=== PATIENT | female | born 1945 | race Two or more races ===

== ENCOUNTER 2018-01-20 14:41 | Inpatient (IN) | payer MEDICARE, OTHER ==
[2018-01-20] VITALS (20 sets, daily range): BP systolic 71–117; BP diastolic 28–50
[~2018-01-20] VITALS: Ht 154.9 cm; Wt 63.0 kg
--- NOTE | 2018-01-20 14:45 | NUR ---
AAOX3, BIBRA 39 FROM DIALYSIS CENTER C/O HYPOTENSION 70/40 AFTER THE PATIENT FINISHED HER DIALYSIS. ASYMPTOMATIC. RR IS EVEN AND UNLABORED WITH NAD NOTED. PLACED ON THE MONITOR. SKIN IS WARM AND DRY. DR THAKUR AT BS FOR EVAL.
[2018-01-20] MEDS ORDERED: IV NS 0.9% 500 ML BAG IV ONE (15:00)
[2018-01-20] MEDS ORDERED: DILTIAZEM HCL 25 MG IV ONE (15:17)
[2018-01-20] MEDS ORDERED: Magnesium 1GM/D5W 100ML PREMIX 100 ML IV ONE ×2 (15:17→16:39)
[2018-01-20 15:24] LABS: CALCIUM, SERUM 7.9 mg/dL (8.5-10.1); CARBON DIOXIDE 30 mmol/L (21-32); CHLORIDE 99 mmol/L (98-107); CREATININE 1.9 mg/dL (0.6-1.3); GLUCOSE 125 mg/dL (74-106); SODIUM SERUM 133 mmol/L (136-145); UREA NITROGEN, BLOOD 18 mg/dL (7-18)
[2018-01-20 15:25] LABS: POTASSIUM 2.8 mmol/L (3.5-5.1)
[2018-01-20 15:27] LABS: HEMATOCRIT 26 % (39-51); MEAN CORPUSCULAR HEMOGLOBIN 28 PG (26.0-33.0); MEAN CORPUSCULAR HGB CONC 35 g/dl (31.0-36.0); MEAN CORPUSCULAR VOLUME 80 fL (80-96); PLATELET COUNT (AUTO) 131 /CMM (150-450); RDW COEFFICIENT OF VARIATION 15.1 (11.5-15.0); RED BLOOD CELL COUNT(AUTO) 3.18 MIL/uL (4.5-6.0); WHITE BLOOD COUNT (AUTO) 6.1 K/uL (4.3-11.0)
[2018-01-20 15:29] LABS: ALBUMIN 1.9 g/dL (3.4-5.0); ALKALINE PHOSPHATASE 124 U/L (46-116); BILIRUBIN,TOTAL 0.3 mg/dL (0.2-1.0); INR 0.98 (0.85-1.15); TOTAL PROTEIN, SERUM 5.1 g/dL (6.4-8.2)
[2018-01-20] MEDS: Magnesium 1GM/D5W 100ML PREMIX 100 ML IV SCH ×2 (15:30→16:30)
[2018-01-20] MEDS ORDERED: DILTIAZEM HCL IV 125 MG in IV NS 0.9% 100 ML IV PRN (15:30)
[2018-01-20] MEDS ORDERED: DILTIAZEM HCL 50 MG IV IV ONE (15:30)
[2018-01-20 15:31] LABS: TROPONIN I 0.096 ng/mL (0.00-0.056)
[2018-01-20] MEDS ORDERED: BUDE10.2 IH (15:40)
[2018-01-20] MEDS ORDERED: SUCR1TAB PO (15:40)
[2018-01-20] MEDS ORDERED: AMLO5TAB2 PO (15:40)
[2018-01-20] MEDS ORDERED: CALC0.5C11 PO (15:40)
[2018-01-20] MEDS ORDERED: PANT40TA2 PO (15:40)
[2018-01-20] MEDS ORDERED: CLON0.1T PO (15:40)
[2018-01-20] MEDS ORDERED: ONDA4TAB10 PO (15:40)
[2018-01-20] MEDS ORDERED: LOSA100T15 PO (15:40)
[2018-01-20] MEDS ORDERED: METO25TA3 PO (15:40)
[2018-01-20] MEDS ORDERED: METO-295 PO (15:40)
[2018-01-20] MEDS ORDERED: ERGO500014 PO (15:40)
[2018-01-20 15:45] LABS: ALANINE AMINOTRANSFERASE 63 U/L (12-78); ASPARTATE AMINOTRANSFERASE 107 U/L (15-37)
[2018-01-20] MEDS ORDERED: IV NS 0.9% 1,000 ML BAG IV ONE (16:00)
[2018-01-20] MEDS ORDERED: POTASSIUM CL. PREMIX PERIPHER. 50 ML IV SCH (16:30)
[2018-01-20] MEDS ORDERED: ASPIRIN 81 MG TAB.CHEW PO SCH (16:30)
[2018-01-20] MEDS ORDERED: POTASSIUM CL. PREMIX PERIPHER. 50 ML ONE (16:41)
[2018-01-20] MEDS ORDERED: ASPIRIN 81 MG TAB.CHEW ONE (16:44)
[2018-01-20 17:10] LABS: NEUTROPHILS % (MANUAL) 76 (42-76)
[2018-01-20 17:11] LABS: BAND % (MANUAL) 4 % (0.0-5.0); EOSINOPHILS % (MANUAL) 5 % (0-4); LYMPHOCYTES % (MANUAL) 3 % (16-48); MONOCYTES % (MANUAL) 12 % (0-11.0)
[2018-01-20] MEDS ORDERED: IV NS 0.9% 1,000 ML IV PRN (17:26)
[2018-01-20] MEDS ORDERED: ONDANSETRON HCL/PF 4 MG/2 ML VIAL IVP PRN (17:30)
[2018-01-20] MEDS ORDERED: ONDANSETRON 4 MG TAB.RAPDIS SL PRN (17:30)
[2018-01-20] MEDS ORDERED: CLONIDINE HCL 0.1 MG TABLET PO PRN (17:30)
[2018-01-20] MEDS ORDERED: Z GUARD REMEDY 2 OZ OINT TP PRN (17:30)
[2018-01-20] MEDS ORDERED: ACETAMINOPHEN 325 MG TABLET PO PRN (17:30)
--- NOTE | 2018-01-20 17:30 | NUR ---
Patient is resting comfortably in bed with eyes closed. Easily aroused. VSS
--- NOTE | 2018-01-20 18:31 | NUR ---
ICU 261
--- NOTE | 2018-01-20 18:44 | NUR ---
REPORT GIVEN TO CHANTAL WEBB FOR [facility] ICU 256
--- NOTE | 2018-01-20 19:25 | NUR ---
BALE SEWER: RECEIVED LAO SPEAKING PT FROM ER WT DX OF HYPOTENSION AND UNCONTROLLED A. FIB. ALERT AND ORIENTED X 3. ON ROOM AIR WT NO ACUTE DISTRESS. NO C/O PAIN OR EVIDENCE OF DISCOMFORT. WAS ON CARDIZEM DRIP FROM ER AND NOW OFF SBP IN THE 80s. IN AND OUT OF CONTROLLED A. FIB WT HR IN THE 90s TO 100. BODY ASSESSMENT DONE AND NOTED WT MULT. BODY DISCOLORATION. WILL ADMINISTER MEDS ORDERED. SAFETY PRECAUTION NOTED. CALL LIGHT WITHIN EASY REACH.
[2018-01-20] MEDS ORDERED: NOREPINEPHRINE 16 MG in IV D5W 500 ML IV PRN (20:00)
--- NOTE | 2018-01-20 21:00 | NUR ---
HAND TURNER: BETZAIDA ESCOBAR AT BEDSIDE AND UPDATED PT STATUS. 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 LAST RADIATION WAS YESTERDAY WHILE ADMITTED AT [facility]. WAS SUPPOSED TO HAVE CHEMOTHERAPY TODAY AFTER DIALYSIS CENTER BUT GOT ADMITTED HERE IN [facility].
[2018-01-20] MEDS ORDERED: APIXABAN 2.5 MG TABLET PO SCH (23:00)
--- NOTE | 2018-01-20 23:45 | NUR ---
BILINGUAL CASE MANAGER: DR. MCMANUS MADE AWARE OF TROPONIN RESULT WT NEW ORDERS. ALSO MADE AWARE THAT PT HAS MULT. MYELOMA AND IS CURRENTLY UNDERGOING CHEMO AND RADIATION TX.
[2018-01-21] VITALS (45 sets, daily range): BP systolic 91–138; BP diastolic 41–91
[2018-01-21] MEDS ORDERED: ENOXAPARIN SODIUM 60 MG/0.6 ML DISP.SYRIN SQ ONE
[2018-01-21 05:14] LABS: EOSINOPHILS % (AUTO) 2.8 % (0.0-6.0); HEMATOCRIT 24 % (33-45); LYMPHOCYTES # (AUTO) 0.2 /CMM (0.8-4.8); LYMPHOCYTES % (AUTO) 2.3 % (20.0-44.0); MEAN CORPUSCULAR HEMOGLOBIN 28 PG (26.0-33.0); MEAN CORPUSCULAR HGB CONC 33 g/dl (31.0-36.0); MEAN CORPUSCULAR VOLUME 83 fL (82-100); MONOCYTES # (AUTO) 0.3 /CMM (0.1-1.30); MONOCYTES % (AUTO) 4.5 % (2.0-12.0); NEUTROPHILS # (AUTO) 6.8 /CMM (1.8-8.9); NEUTROPHILS % (AUTO) 90.4 % (43.0-81.0); PLATELET COUNT (AUTO) 140 /CMM (150-450); RDW COEFFICIENT OF VARIATION 16.5 (11.5-15.0); WHITE BLOOD COUNT (AUTO) 7.5 K/uL (4.3-11.0)
--- NOTE | 2018-01-21 05:15 | NUR ---
DATA WAREHOUSE CONSULTANT: REMAINED ALERT AND ABLE TO MAKE NEEDS KNOWN. STILL ON LEVOPHED AT 2MCG/MIN FOR BP SUPPORT. STILL ANURIC THROUGHOUT THE SHIFT. NO ACUTE DISTRESS, NO C/O PAIN. WILL CONTINUE TO MONITOR.
[2018-01-21 05:27] LABS: ALANINE AMINOTRANSFERASE 43 U/L (12-78); ALBUMIN 1.7 g/dL (3.4-5.0); ALKALINE PHOSPHATASE 97 U/L (46-116); ASPARTATE AMINOTRANSFERASE 89 U/L (15-37); BILIRUBIN,TOTAL 0.2 mg/dL (0.2-1.0); CALCIUM, SERUM 7.8 mg/dL (8.5-10.1); CARBON DIOXIDE 26 mmol/L (21-32); CHLORIDE 100 mmol/L (98-107); CREATININE 2.7 mg/dL (0.6-1.3); GLUCOSE 95 mg/dL (74-106); PHOSPHORUS 2.8 mg/dL (2.5-4.9); POTASSIUM 2.9 mmol/L (3.5-5.1); SODIUM SERUM 135 mmol/L (136-145); TOTAL PROTEIN, SERUM 4.6 g/dL (6.4-8.2); UREA NITROGEN, BLOOD 24 mg/dL (7-18)
[2018-01-21 05:34] LABS: CHOLESTEROL 183 mg/dL (<200); HDL CHOLESTEROL 14 mg/dL (40-60); LDL 54 mg/dL (0-99); THYROID STIMULATING HORMONE 0.741 uIU/mL (0.358-3.74); TRIGLYCERIDES 551 mg/dL (30-150)
--- NOTE | 2018-01-21 05:45 | NUR ---
FEEDER CATCHER: CALLED AND NOTIFIED DR. QUEEN OF K=2.9 FROM 2.8 AND PT REMAINED ANURIC AND WAS GIVEN KCL 10MEQ FROM ER. ALSO INFORMED THAT TOMEKA REGALADO ORDERED NS AT 75ML/HR FOR 500ML TOTAL VOLUME. SAID NO NEED TO REPLACE K IF THERE IS NO URINE OUTPUT. ALSO ORDERED NS AT 100ML/HR FOR RENAL FAILURE WT NO STOP DATE OR VOLUME TO BE INFUSED. WAS MADE AWARE AGAIN THAT PT IS ON HEMODIALYSIS. NOTED AND CARRIED OUT.
[2018-01-21] MEDS ORDERED: IV NS 0.9% 1,000 ML IV PRN (05:50)
--- NOTE | 2018-01-21 06:30 | NUR ---
GUT DROPPER: REMAINED SR ON SUBPOENA SERVER MOSTLY THROUGHOUT THE SHIFT SINCE 2099. NO SIGNIFICANT MACK.
--- NOTE | 2018-01-21 07:30 | NUR ---
ICU/RN: Pt received in bed, comfortable, eyes closed, breathing even and unlabored, A&Ox4, Belarusian speaking only. MARCO AV shunt present, + bruit, thrill. R CW HD cath c clean and dry dressing. IVF infusing well. All needs met and attended to. Will cont to monitor pt.
[2018-01-21] MEDS: SUCRALFATE 1 G TABLET PO SCH ×2 (08:14→16:26)
[2018-01-21] MEDS: METOCLOPRAMIDE HCL 10 MG TABLET PO SCH ×3 (08:14→16:26)
[2018-01-21] MEDS: PANTOPRAZOLE 40 MG TABLET.DR PO SCH (08:14)
[2018-01-21] MEDS: FLUTICASONE/VILANTEROL 1 EACH BLST.W.DEV IH SCH (08:16)
[2018-01-21] MEDS ORDERED: AMLODIPINE BESYLATE 5 MG TABLET PO SCH (09:00)
[2018-01-21] MEDS ORDERED: LOSARTAN POTASSIUM 50 MG TABLET PO SCH (09:00)
[2018-01-21] MEDS ORDERED: METOPROLOL SUCCINATE 25 MG TAB.SR.24H PO SCH (09:00)
--- NOTE | 2018-01-21 09:15 | NUR ---
ICU/RN: Dr Laguna in for nephrology consult; updated on pt status, scant urine output. Per mitesh LIANG to give K+ replacements, DC IVF. Noted and carried out.
[2018-01-21] MEDS: POTASSIUM CHLORIDE 20 MEQ TAB.PRT.SR PO SCH ×3 (09:19→11:24)
[2018-01-21] MEDS ORDERED: APIXABAN 2.5 MG TABLET PO ONE (10:00)
[2018-01-21] MEDS: CALCITRIOL 0.25 MCG CAPSULE PO SCH ×2 (15:06→16:26)
--- NOTE | 2018-01-21 15:25 | NUR ---
ICU/RN: Bed bath rendered, small smear of stool noted, insufficient amount to collect for OBS. Will cont to monitor pt.
--- NOTE | 2018-01-21 18:45 | NUR ---
ICU/RN: Silver Benson at bedside, updated on pt status. Had lengthy dw niece regarding POC. Informed pt is off pressors, BP and rate control meds still on hold. Awaiting further orders.
--- NOTE | 2018-01-21 21:29 | NUR ---
ICU/INTERIOR DESIGN PROFESSIONAL NIECE OF PT CAME IN DUE TO PT BEING UPSET AND UNABLE TO PROVIDE DISHWASHER PREPARER FOR THIS PT. ONCE HERE THE NIECE WAS ABLE TO SUGGEST A SLEEPING AID. PT AT HOME GETS SLEEPER, OF AMBIEN. CALLED DR MCMANUS, AND GOT ORDER FOR X1 AMBIEN 5MG PO. WILL GIVE THIS @ 22OO AND MONITOR THIS PT, WILL CALL LIGHT WITHIN REACH AND BED ALARMS SET.
[2018-01-21 21:33] LABS: OCCULT BLOOD STOOL NEGATIVE (NEGATIVE)
[2018-01-21] MEDS ORDERED: ZOLPIDEM TARTRATE 5 MG TABLET PO ONE (22:00)
--- NOTE | 2018-01-21 22:10 | NUR ---
ICU/FORGE HAND PT GIVEN AMBIEN 5MG PO FOR SLEEPING, PT TAKES THIS AT HOME. NO ACUTE DISTRESS SEEN AT THIS TIME, PT APPEARS COMFORTABLE. CALL LIGHT WITHIN REACH. WILL CONTINUE TO MONITOR THIS PT, BED ALARM SET.
--- NOTE | 2018-01-21 23:20 | NUR ---
ICU/ANESTHESIOLOGY FACULTY PT ASST TO BEDSIDE COMMODE, PT HAD STABLE GATE WITH STAND-BYE AST. PT WAS ABLE TO HAVE A LARGE, SOFT, BM. PT WAS CLEANED UP AND ASST BACK TO BED. CALL LIGHT WITHIN REACH, NO SOB SEEN.
[2018-01-22] VITALS (13 sets, daily range): BP systolic 90–122; BP diastolic 37–57
--- NOTE | 2018-01-22 01:45 | NUR ---
ICU/ENVELOPE SEALER PT WAS GIVEN AM CARE, TOLERATE THIS WELL. PT DENIED PAIN AT THIS TIME AND DENIED SOB. CALL LIGHT WITHIN REACH. PT WAS TURNED, REPOSITIONED FOR COMFORT AND CARE. WILL CONTINUE TO MONITOR THIS PT.
[2018-01-22 05:20] LABS: EOSINOPHILS % (AUTO) 1.7 % (0.0-6.0); HEMATOCRIT 22 % (33-45); HEMOGLOBIN 7.3 g/dL (11.5-14.8); LYMPHOCYTES # (AUTO) 0.2 /CMM (0.8-4.8); LYMPHOCYTES % (AUTO) 3.7 % (20.0-44.0); MEAN CORPUSCULAR HEMOGLOBIN 27 PG (26.0-33.0); MEAN CORPUSCULAR HGB CONC 33 g/dl (31.0-36.0); MEAN CORPUSCULAR VOLUME 81 fL (82-100); MONOCYTES # (AUTO) 0.2 /CMM (0.1-1.30); MONOCYTES % (AUTO) 2.7 % (2.0-12.0); NEUTROPHILS # (AUTO) 5.4 /CMM (1.8-8.9); NEUTROPHILS % (AUTO) 91.9 % (43.0-81.0); PLATELET COUNT (AUTO) 124 /CMM (150-450); RDW COEFFICIENT OF VARIATION 16.2 (11.5-15.0); RED BLOOD CELL COUNT(AUTO) 2.74 MIL/uL (4.0-5.2); WHITE BLOOD COUNT (AUTO) 5.9 K/uL (4.3-11.0)
[2018-01-22 05:58] LABS: TROPONIN I 0.545 ng/mL (0.00-0.056)
--- NOTE | 2018-01-22 07:30 | NUR ---
CARROT HARVESTER NOTE: RECEIVED PATIENT IN BED, SEATED IN AN UPRIGHT POSITION. PATIENT WAS CAPE VERDEAN SPEAKING AND AN CAPE VERDEAN SPEAKING NURSE WAS AVAILABLE TO INTERPRET. ON BENCH CARPENTER, ST HR= 115. RESPIRATION IS EVEN AND UNLABORED SATURATING 95% IN ROOM AIR. PATIENT REQUESTED FOR HER BREAKFAST TRAY, PATIENT WAS NEEDY AND WANTING TO GET HER NEEDS ATTENDED RIGHT AWAY. REMOVED HER BP CUFF. BREAKFAST TRAY WAS GIVEN. PLACED HER FULL DENTURE ON HER IN ORDER TO EAT HER BREAKFAST. CALL LIGHT WITHIN REACH. NEEDS ANTICIPATED.
[2018-01-22] MEDS: PANTOPRAZOLE 40 MG TABLET.DR PO SCH (08:12)
[2018-01-22 08:19] LABS: IRON, SERUM 34 ug/dl (50-175); TOTAL IRON BINDING CAPACITY 130 ug/dl (250-450)
[2018-01-22] MEDS: SUCRALFATE 1 G TABLET PO SCH ×2 (08:31→17:44)
[2018-01-22] MEDS: FLUTICASONE/VILANTEROL 1 EACH BLST.W.DEV IH SCH (08:31)
[2018-01-22] MEDS: METOCLOPRAMIDE HCL 10 MG TABLET PO SCH ×3 (08:32→17:44)
[2018-01-22] MEDS: CALCITRIOL 0.25 MCG CAPSULE PO SCH ×2 (08:32→17:44)
[2018-01-22] MEDS: APIXABAN 2.5 MG TABLET PO SCH ×2 (08:32→17:44)
[2018-01-22] MEDS: METOPROLOL TARTRATE 50 MG TABLET PO SCH ×2 (09:00→20:06)
--- NOTE | 2018-01-22 09:29 | NUR ---
SPOUTING INSTALLER NOTE: DR. Comfort DAWN PRESENT IN THE UNIT AND PER MD, PATIENT WILL BE DIALYZE TODAY. BP MEDICATION WAS HELD. BP= 120/55 HR= 112. PATIENT DENIED PAIN AT THIS TIME. ALL AM MEDICATIONS ADMINISTERED.
[2018-01-22] MEDS ORDERED: EPOETIN ALFA (10,000 UNIT) 10,000 UNIT/ML VIAL IV ONE (10:00)
[2018-01-22 10:17] LABS: ALANINE AMINOTRANSFERASE 37 U/L (12-78); ALBUMIN 1.7 g/dL (3.4-5.0); ALKALINE PHOSPHATASE 89 U/L (46-116); ASPARTATE AMINOTRANSFERASE 58 U/L (15-37); BILIRUBIN,TOTAL 0.2 mg/dL (0.2-1.0); CARBON DIOXIDE 20 mmol/L (21-32); CHLORIDE 96 mmol/L (98-107); CREATININE 3.8 mg/dL (0.6-1.3); GLUCOSE 79 mg/dL (74-106); MAGNESIUM 1.7 mg/dL (1.8-2.4); PHOSPHORUS 2.8 mg/dL (2.5-4.9); POTASSIUM 4.1 mmol/L (3.5-5.1); SODIUM SERUM 129 mmol/L (136-145); TOTAL PROTEIN, SERUM 4.6 g/dL (6.4-8.2); UREA NITROGEN, BLOOD 37 mg/dL (7-18)
[2018-01-22 12:53] LABS: FERRITIN 5239 ng/mL (8-388)
--- NOTE | 2018-01-22 16:00 | NUR ---
FIRE WARDEN NOTE: PATIENT CURRENTLY ON HEMODIALYSIS AT THIS TIME AND NOTED VERY ANXIOUS AND VERBALIZED THAT SHE WAS FEELING COLD. ORAL TEMP WAS 98.7, BS=86, BP= 113/56, HR= 120. CALLED THE PATIENT'S NIECE, LUZ AND PER LUZ, SHE WILL COME AND VISIT HER AUNT TODAY. PATIENT CALMED DOWN AND TOLERATED THE HEMODIALYSIS.
--- NOTE | 2018-01-22 17:20 | NUR ---
PREPARER NOTE: DR. LANDAVERDE WAS MADE AWARE OF THE PATIENT'S EKG RESULT. WITH NO NEW ORDER AT THIS TIME.
--- NOTE | 2018-01-22 19:45 | NUR ---
TAX COMMISSIONER NOTE: PATIENT REMAINED CALM AND QUIET IN BED WITH HER FAMILY PRESENT AT THE BEDSIDE. REPORT GIVEN TO PM SHIFT NURSE FOR CONTINUITY OF CARE.
--- NOTE | 2018-01-22 20:26 | NUR ---
SOCIAL MEDIA ANALYST LUZ AT BEDSIDE, PT REQUESTING AMBIEN 5MG TONIGHT FOR INSOMNIA, SPOKE TO MD DAVIS MD WITH NEW ORDER OF AMBIEN 5MG PO QHS PRN. FAMILY AND PATIENT AWARE.
[2018-01-22] MEDS ORDERED: ZOLPIDEM TARTRATE 5 MG TABLET PO PRN (20:30)
[2018-01-23] VITALS (7 sets, daily range): BP systolic 97–114; BP diastolic 45–69
[2018-01-23 06:32] LABS: BASOPHILS % (AUTO) 0.2 % (0.0-2.0); HEMATOCRIT 21 % (33-45); LYMPHOCYTES # (AUTO) 0.2 /CMM (0.8-4.8); LYMPHOCYTES % (AUTO) 5.6 % (20.0-44.0); MEAN CORPUSCULAR HEMOGLOBIN 27 PG (26.0-33.0); MEAN CORPUSCULAR HGB CONC 33 g/dl (31.0-36.0); MEAN CORPUSCULAR VOLUME 81 fL (82-100); MONOCYTES # (AUTO) 0.2 /CMM (0.1-1.30); MONOCYTES % (AUTO) 3.7 % (2.0-12.0); NEUTROPHILS # (AUTO) 3.8 /CMM (1.8-8.9); NEUTROPHILS % (AUTO) 88.5 % (43.0-81.0); PLATELET COUNT (AUTO) 118 /CMM (150-450); RDW COEFFICIENT OF VARIATION 16.9 (11.5-15.0); RED BLOOD CELL COUNT(AUTO) 2.55 MIL/uL (4.0-5.2); WHITE BLOOD COUNT (AUTO) 4.3 K/uL (4.3-11.0)
[2018-01-23 06:46] LABS: CALCIUM, SERUM 7.9 mg/dL (8.5-10.1); CARBON DIOXIDE 27 mmol/L (21-32); CHLORIDE 100 mmol/L (98-107); CREATININE 2.9 mg/dL (0.6-1.3); GLUCOSE 81 mg/dL (74-106); MAGNESIUM 1.6 mg/dL (1.8-2.4); PHOSPHORUS 2.4 mg/dL (2.5-4.9); POTASSIUM 3.6 mmol/L (3.5-5.1); SODIUM SERUM 134 mmol/L (136-145); UREA NITROGEN, BLOOD 24 mg/dL (7-18)
[2018-01-23 07:01] LABS: HEMOGLOBIN 6.7 g/dL (11.5-14.8)
--- NOTE | 2018-01-23 07:42 | NUR ---
GUEST RELATIONS EXECUTIVE OPENING NOTE RECEIVED BEDSIDE SBAR REPORT ON THE PATIENT. PATIENT IS A/O X4, SERBIAN SPEAKING. AWAKE AND RESPONSIVE IN BED. BED IS LOCKED IN LOWEST POSITION, SIDE RAILS UP X3,BED ALARM IS ON. CALL LIGHT WITHIN REACH. EDUCATED THE PATIENT TO CALL FOR ASSISTANCE USING THE CALL LIGHT. PATIENT VERBALIZED UNDERSTANDING. PATIENT IS AMBULATORILY WITH ASSIST. CONTINENT, USES BEDPAN. DENIES PAIN/DISCOMFORT AT THIS TIME. EXTERNAL MONITOR READING SR 86BPM. ALL NEEDS ARE MET. WILL CONTINUE TO ASSESS/MONITOR THROUGHOUT THE SHIFT.
[2018-01-23] MEDS: SUCRALFATE 1 G TABLET PO SCH ×2 (08:48→17:55)
[2018-01-23] MEDS: CALCITRIOL 0.25 MCG CAPSULE PO SCH ×2 (08:48→17:55)
[2018-01-23] MEDS: METOCLOPRAMIDE HCL 10 MG TABLET PO SCH ×3 (08:48→17:55)
[2018-01-23] MEDS: PANTOPRAZOLE 40 MG TABLET.DR PO SCH (08:49)
[2018-01-23] MEDS: METOPROLOL TARTRATE 50 MG TABLET PO SCH ×2 (08:51→20:59)
[2018-01-23] MEDS: APIXABAN 2.5 MG TABLET PO SCH ×2 (08:52→17:55)
[2018-01-23] MEDS: FLUTICASONE/VILANTEROL 1 EACH BLST.W.DEV IH SCH (08:54)
[2018-01-23 11:26] LABS: LYMPHOCYTES % (MANUAL) 8 % (16-48); MONOCYTES % (MANUAL) 4 % (0-11.0); NEUTROPHILS % (MANUAL) 88 (42-76)
--- NOTE | 2018-01-23 16:26 | NUR ---
SPOKE TO THE BLOOD BANK. PER AURELIA, THE BLOOD SAMPLE JUST KENY PICKET UP BY RED CROSS. BLOOD IS STILL PENDING.
--- NOTE | 2018-01-23 19:06 | NUR ---
PRIVATE TUTORS AND TEACHERS CLOSING NOTE GAVE BEDSIDE SBAR REPORT ON THE PATIENT. PATIENT IS A/O X4, DJIBOUTIAN SPEAKING. AWAKE AND RESPONSIVE IN BED. BED IS LOCKED IN LOWEST POSITION, SIDE RAILS UP X3,BED ALARM IS ON. CALL LIGHT WITHIN REACH. EDUCATED THE PATIENT TO CALL FOR ASSISTANCE USING THE CALL LIGHT. PATIENT VERBALIZED UNDERSTANDING. PATIENT IS AMBULATORILY WITH ASSIST. CONTINENT, USES BEDPAN. DENIES PAIN/DISCOMFORT AT THIS TIME. ALL NEEDS ARE MET. ENDORSED TO THE POP SINGER NURSE FOR MACK
[2018-01-24] VITALS (10 sets, daily range): BP systolic 105–147; BP diastolic 47–78
--- NOTE | 2018-01-24 08:10 | NUR ---
here. He talked to family on the phone. Addendum: 01/24/18 at 1020 by REBECCA GOODSON RN 0800: Blood transfusion done. Patient is alert and oriented no sign of distress
[2018-01-24] MEDS: PANTOPRAZOLE 40 MG TABLET.DR PO SCH (08:26)
[2018-01-24] MEDS: SUCRALFATE 1 G TABLET PO SCH ×2 (09:05→16:12)
[2018-01-24] MEDS: METOCLOPRAMIDE HCL 10 MG TABLET PO SCH ×3 (09:05→16:11)
[2018-01-24] MEDS: CALCITRIOL 0.25 MCG CAPSULE PO SCH ×2 (09:06→16:13)
[2018-01-24] MEDS: APIXABAN 2.5 MG TABLET PO SCH ×2 (09:06→16:13)
[2018-01-24] MEDS: METOPROLOL TARTRATE 50 MG TABLET PO SCH ×2 (09:53→21:55)
[2018-01-24] MEDS: FLUTICASONE/VILANTEROL 1 EACH BLST.W.DEV IH SCH (09:53)
[2018-01-24 10:26] LABS: BASOPHILS % (AUTO) 0.1 % (0.0-2.0); EOSINOPHILS % (AUTO) 1.7 % (0.0-6.0); HEMATOCRIT 25 % (33-45); LYMPHOCYTES # (AUTO) 0.4 /CMM (0.8-4.8); LYMPHOCYTES % (AUTO) 7.1 % (20.0-44.0); MEAN CORPUSCULAR HEMOGLOBIN 27 PG (26.0-33.0); MEAN CORPUSCULAR HGB CONC 33 g/dl (31.0-36.0); MEAN CORPUSCULAR VOLUME 83 fL (82-100); MONOCYTES # (AUTO) 0.1 /CMM (0.1-1.30); MONOCYTES % (AUTO) 2.3 % (2.0-12.0); NEUTROPHILS # (AUTO) 4.8 /CMM (1.8-8.9); NEUTROPHILS % (AUTO) 88.8 % (43.0-81.0); PLATELET COUNT (AUTO) 121 /CMM (150-450); RDW COEFFICIENT OF VARIATION 16.5 (11.5-15.0); RED BLOOD CELL COUNT(AUTO) 2.97 MIL/uL (4.0-5.2); WHITE BLOOD COUNT (AUTO) 5.4 K/uL (4.3-11.0)
[2018-01-24 11:40] LABS: CALCIUM, SERUM 7.8 mg/dL (8.5-10.1); CARBON DIOXIDE 22 mmol/L (21-32); CHLORIDE 97 mmol/L (98-107); CREATININE 3.9 mg/dL (0.6-1.3); GLUCOSE 154 mg/dL (74-106); MAGNESIUM 1.6 mg/dL (1.8-2.4); PHOSPHORUS 3.2 mg/dL (2.5-4.9); POTASSIUM 4.1 mmol/L (3.5-5.1); SODIUM SERUM 131 mmol/L (136-145); UREA NITROGEN, BLOOD 39 mg/dL (7-18)
--- NOTE | 2018-01-24 13:17 | NUR ---
DIALYSIS 1337: Dialysis done, lasted 2 hours and took out 1 liter.
--- NOTE | 2018-01-24 18:39 | NUR ---
MD NOTIFICATION 1809: Called Dr Quintero to notify him: Patient had olivier blood stool, large. paged. 1830: Dr Quintero called back with new order to hold discharge.
--- NOTE | 2018-01-24 19:30 | NUR ---
RN OPENING NOTES PT AWAKE AND RESTING IN BED. PT ENGLISH SPEAKING ONLY. NO APPARENT S/S OF PAIN, DISTRESS OR SOB. HAS A RIGHT FA #20 IV, RIGHT WRIST #22, R SUBCLAVIAN HD CATHETER, AND LEFT UPPER ARM AV FISTULA, ALL INTACT. PT HAD HD TODAY OUTPUT 1L. PER DAY SHIFT NURSE PT HAD BLOOD IN STOOL. WILL CONTINUE TO MONITOR BM. SAFETY PRECAUTIONS IN PLACE, BED IN LOWEST LOCKED POSITION, X2 SIDE RAILS UP, CALL LIGHT WITHIN REACH. WILL CONTINUE TO MONITOR.
--- NOTE | 2018-01-24 19:56 | NUR ---
End of shift note Patient is alert, Tamazight speaking only. On room air with no respiratory distress. Generalized edema. Continent of bowl and bladder. Had large bloody stool. MD notified. HD patient with acces right christian cath. Had dialysis today with 1 liter taken out. Ambulatory with assist. Skin pale and intact. IV site right arm, saline locked. Report given to tereza Preston RN
--- NOTE | 2018-01-25 06:54 | NUR ---
RN CLOSING NOTES PT AWAKE AND RESTING IN BED. PT PORTUGUESE SPEAKING ONLY. NO APPARENT S/S OF PAIN, DISTRESS OR SOB. HAS A RIGHT FA #20 IV, RIGHT WRIST #22, R SUBCLAVIAN HD CATHETER, AND LEFT UPPER ARM AV FISTULA, ALL INTACT. PT HAD HD TODAY OUTPUT 1L. SAFETY PRECAUTIONS IN PLACE, BED IN LOWEST LOCKED POSITION, X2 SIDE RAILS UP, CALL LIGHT WITHIN REACH. WILL CONTINUE TO MONITOR.
[2018-01-25 07:10] LABS: BASOPHILS % (AUTO) 0.6 % (0.0-2.0); EOSINOPHILS % (AUTO) 1.4 % (0.0-6.0); HEMATOCRIT 24 % (33-45); LYMPHOCYTES # (AUTO) 0.4 /CMM (0.8-4.8); LYMPHOCYTES % (AUTO) 8.2 % (20.0-44.0); MEAN CORPUSCULAR HEMOGLOBIN 27 PG (26.0-33.0); MEAN CORPUSCULAR HGB CONC 33 g/dl (31.0-36.0); MEAN CORPUSCULAR VOLUME 83 fL (82-100); MONOCYTES # (AUTO) 0.3 /CMM (0.1-1.30); MONOCYTES % (AUTO) 5.1 % (2.0-12.0); NEUTROPHILS # (AUTO) 4.2 /CMM (1.8-8.9); NEUTROPHILS % (AUTO) 84.7 % (43.0-81.0); PLATELET COUNT (AUTO) 95 /CMM (150-450); RDW COEFFICIENT OF VARIATION 16.7 (11.5-15.0); RED BLOOD CELL COUNT(AUTO) 2.91 MIL/uL (4.0-5.2); WHITE BLOOD COUNT (AUTO) 4.9 K/uL (4.3-11.0)
--- NOTE | 2018-01-25 07:10 | NUR ---
MS RN NOTES PATIENT IN BED ALERT ORIENTED X 4. NO ACUTE DISTRESS NOTED. BREATHING UNLABORED. NO SOB NOTED. IV ACCESS PATENT AND INTACT, NO REDNESS NO SWELLING NOTED. CALL LIGHT WITHIN REACH. SAFETY MEASURES IN PLACE. BED LOCKED, LOW POSITION. WILL CONTINUE TO MONITOR ACCORDINGLY.
[2018-01-25] MEDS ORDERED: ERGOCALCIFEROL (VITAMIN D 2) 50,000 UNIT CAPSULE PO SCH (07:30)
[2018-01-25 08:00] VITALS: BP 108/57
[2018-01-25] MEDS: SUCRALFATE 1 G TABLET PO SCH ×2 (08:25→16:56)
[2018-01-25] MEDS: PANTOPRAZOLE 40 MG TABLET.DR PO SCH (08:25)
[2018-01-25] MEDS: CALCITRIOL 0.25 MCG CAPSULE PO SCH ×2 (08:25→16:56)
[2018-01-25] MEDS: APIXABAN 2.5 MG TABLET PO SCH ×2 (08:26→17:00)
[2018-01-25] MEDS: METOPROLOL TARTRATE 50 MG TABLET PO SCH ×2 (08:26→21:00)
[2018-01-25] MEDS: METOCLOPRAMIDE HCL 10 MG TABLET PO SCH ×3 (08:26→16:56)
[2018-01-25 08:59] LABS: EOSINOPHILS % (MANUAL) 2 % (0-4); LYMPHOCYTES % (MANUAL) 9 % (16-48); MONOCYTES % (MANUAL) 9 % (0-11.0); NEUTROPHILS % (MANUAL) 80 (42-76)
[2018-01-25] MEDS: FLUTICASONE/VILANTEROL 1 EACH BLST.W.DEV IH SCH (09:24)
[2018-01-25 10:00] VITALS: BP 108/57
--- NOTE | 2018-01-25 14:25 | NUR ---
MS RN NOTES [facility] TO DISCONTINUE RIGHT ARM SLING AND ORDER RIGHT UPPER EXTREMITIES WEIGHT BEARING TOLERATED, NOTED AND CARRIED OUT.
[2018-01-25 16:00] VITALS: BP 116/58
--- NOTE | 2018-01-25 17:00 | NUR ---
MS RN NOTES HELD ELIQUIS PATIENT WILL HAVE PROCEDURE TOMORROW.
--- NOTE | 2018-01-25 18:35 | NUR ---
MS RN NOTES PATIENT IN BED ALERT ORIENTED X 4. NO ACUTE DISTRESS NOTED. BREATHING UNLABORED. NO SOB NOTED. IV ACCESS PATENT AND INTACT, NO REDNESS NO SWELLING NOTED. DUE MEDICATIONS GIVEN, NO ASE NOTED. NEEDS ATTENDED AND ANTICIPATED. KEPT CLEAN, DRY AND COMFORTABLE. CALL LIGHT WITHIN REACH. SAFETY MEASURES IN PLACE. BED LOCKED, LOW POSITION. WILL CONTINUE TO MONITOR ACCORDINGLY. WILL ENDORSE TO NIGHT NURSE FOR CONTINUITY OF CARE.
--- NOTE | 2018-01-25 19:45 | NUR ---
MS RN NOTE PT RECEIVED AWAKE AND SITTING UP IN BED WITH NIECE AT BEDSIDE. NO C/O PAIN OR DISCOMFORT NOTED. EXPLAINED TO REMAIN NPO AFTER MIDNIGHT FOR PROCEDURE TOMORROW. PT VERBALIZED UNDERSTANDING. HOB ELEVATED. CALL LIGHT WITHIN REACH. WILL CONTINUE TO MONITOR.
[2018-01-25 20:00] VITALS: BP 102/51
[2018-01-26 06:41] VITALS: BP 127/63
--- NOTE | 2018-01-26 06:42 | NUR ---
MS RN NOTE REMAINED STABLE DURING SHIFT. REMAINED NPO SINCE MIDNIGHT. ALL NEEDS ATTENDED TO PROMPTLY. CALL LIGHT WITHIN REACH. WILL ENDORSE TO NEXT SHIFT FOR CONTINUITY OF CARE.
[2018-01-26 07:24] LABS: BASOPHILS % (AUTO) 0.6 % (0.0-2.0); EOSINOPHILS % (AUTO) 1.5 % (0.0-6.0); HEMATOCRIT 23 % (33-45); HEMOGLOBIN 7.5 g/dL (11.5-14.8); LYMPHOCYTES # (AUTO) 0.4 /CMM (0.8-4.8); MEAN CORPUSCULAR HEMOGLOBIN 27 PG (26.0-33.0); MEAN CORPUSCULAR HGB CONC 33 g/dl (31.0-36.0); MEAN CORPUSCULAR VOLUME 82 fL (82-100); MONOCYTES # (AUTO) 0.1 /CMM (0.1-1.30); MONOCYTES % (AUTO) 2.1 % (2.0-12.0); NEUTROPHILS % (AUTO) 87.8 % (43.0-81.0); PLATELET COUNT (AUTO) 90 /CMM (150-450); RDW COEFFICIENT OF VARIATION 16.3 (11.5-15.0); RED BLOOD CELL COUNT(AUTO) 2.74 MIL/uL (4.0-5.2); WHITE BLOOD COUNT (AUTO) 4.6 K/uL (4.3-11.0)
[2018-01-26 07:29] LABS: CALCIUM, SERUM 8.8 mg/dL (8.5-10.1); CARBON DIOXIDE 25 mmol/L (21-32); CHLORIDE 100 mmol/L (98-107); CREATININE 4.4 mg/dL (0.6-1.3); GLUCOSE 81 mg/dL (74-106); POTASSIUM 4.2 mmol/L (3.5-5.1); SODIUM SERUM 133 mmol/L (136-145); UREA NITROGEN, BLOOD 46 mg/dL (7-18)
[2018-01-26] MEDS: PANTOPRAZOLE 40 MG TABLET.DR PO SCH (07:30)
--- NOTE | 2018-01-26 08:00 | NUR ---
MS RN OPENING NOTES RECEIVED PT FROM NIGHTSHIFT NURSE IN STABLE CONDITION. PT IS A/O X3. NO SOB OR SIGNS OF DISTRESS NOTED. BREATHING IS EVEN AND UNLABORED. PT ON RA AND SATING WELL. SHE DENIES ANY PAIN AT THIS TIME. NPO STATUS MAINTAINED SINCE MIDNIGHT PT IS SCHEDULED FOR EGD TODAY AROUND 1330. CONSENTS OBTAINED BY NIGHTSHIFT NURSE. WILL COMPLETE SURGICAL CHECKLIST. BED IN LOW LOCKED POSITION, SIDE RAILS UP X2, CALL LIGHT WITHIN REACH. WILL CONTINUE TO MONITOR
[2018-01-26 08:24] LABS: BAND % (MANUAL) 1 % (0.0-5.0); LYMPHOCYTES % (MANUAL) 5 % (16-48); MONOCYTES % (MANUAL) 5 % (0-11.0); NEUTROPHILS % (MANUAL) 89 (42-76)
[2018-01-26] MEDS: FLUTICASONE/VILANTEROL 1 EACH BLST.W.DEV IH SCH (08:43)
[2018-01-26] MEDS: APIXABAN 2.5 MG TABLET PO SCH ×2 (08:44→16:02)
[2018-01-26] MEDS: METOCLOPRAMIDE HCL 10 MG TABLET PO SCH ×3 (08:44→16:02)
[2018-01-26] MEDS: SUCRALFATE 1 G TABLET PO SCH ×2 (08:44→16:02)
[2018-01-26] MEDS: METOPROLOL TARTRATE 50 MG TABLET PO SCH ×2 (08:44→20:52)
[2018-01-26] MEDS: CALCITRIOL 0.25 MCG CAPSULE PO SCH ×2 (08:45→16:02)
[2018-01-26 09:59] LABS: MAGNESIUM 1.5 mg/dL (1.8-2.4); PHOSPHORUS 3.6 mg/dL (2.5-4.9)
[2018-01-26 10:00] VITALS: BP 121/61
--- NOTE | 2018-01-26 11:28 | NUR ---
MS RN NOTES: MAGNESIUM REPLACEMENT ORDER DR SANDHU MADE AWARE THAT PT'S MG IS 1.5. PER MD "REPLACE WITH 2G OF MG". WILL CARRY OUT ORDER
[2018-01-26] MEDS ORDERED: Magnesium 1GM/D5W 100ML PREMIX PIGGYBACK IV ONE (11:30)
[2018-01-26] MEDS: Magnesium 1GM/D5W 100ML PREMIX 100 ML IV SCH ×2 (11:43→13:01)
[2018-01-26] MEDS ORDERED: ETOMIDATE 2 MG/ML VIAL ONE (11:53)
--- NOTE | 2018-01-26 12:00 | NUR ---
MS RN NOTES: EGD PROCEDURE PT TAKEN WO EGD PROCEDURE IN STABLE CONDITION. MD MADE AWARE BY OR NURSE THAT PT'S MG IS NOT FULLY REPLACED
--- NOTE | 2018-01-26 12:46 | NUR ---
MS RN NOTES: POST OP PT RETURNED FROM EGD PROCEDURE IN STABLE CONDITION. ORDERS NOTED BY DR. DELGADILLO AND FAXED TO PHARMACY. DIET RESUMED. VITALS SABLE. WILL CONTINUE TO MONITOR
[2018-01-26 16:00] VITALS: BP 125/57
--- NOTE | 2018-01-26 18:45 | NUR ---
MS RN CLOSING NOTES PT REMAINS STABLE. ALL NEEDS MET DURING SHIFT AND ORDERS CARRIED OUT ACCORDINGLY. ALL DUE MEDS GIVEN. IV REMAINS PATENT AND INTACT. MAGNESIUM REPLACED DURING SHIFT. UNABLE TO OBTAIN ORTHOSTATIC BPS PT WAS REFUSING THROUGHOUT SHIFT. HOWEVER SUPINE BPS HAVE REMAINED STABLE. SHE DENIES ANY DIZZINESS AT THIS TIME. SAFETY MEASURES REMAIN IN PLACE. WILL ENDORSE TO NIGHTSHIFT NURSE FOR MACK
[2018-01-26 20:00] VITALS: BP 117/62
[2018-01-27 04:00] VITALS: BP 118/58
--- NOTE | 2018-01-27 06:49 | NUR ---
RN CLOSING NOTES Patient refused blood draw. explained risks and benefits to no avail, patient strongly refused. patient overnight observed to be anxious and irritable, patient kept calling nurses for little things, Citizen Of [place] speaking staff utilized to translate and anticipate patient's needs. safety and comfort ensured, environmental changes made per patient's comfort, however patient unable to be comfortable even with repositioning and attending of needs made with Citizen Of [place] manager of development at bedside. Constant reorientation and redirection provided to the patient. needs anticipated and met. turned and repositioned. call light in reach at all times. will endorse accordingly.
--- NOTE | 2018-01-27 07:39 | NUR ---
MS RN OPENING NOTES RECEIVED PATIENT IN STABLE CONDITION. IN NO APPARENT DISTRESS. BEDSIDE RAILS ARE UPX2. BED IS LOCKED AND LOWERED. CALL LIGHT IS WITHIN REACH. IV LINE IS INTACT AND PATENT. WILL CONTINUE TO MONITOR.
[2018-01-27 08:00] VITALS: BP 119/80
[2018-01-27] MEDS: SUCRALFATE 1 G TABLET PO SCH ×2 (09:26→16:45)
[2018-01-27] MEDS: PANTOPRAZOLE 40 MG TABLET.DR PO SCH (09:26)
[2018-01-27] MEDS: FLUTICASONE/VILANTEROL 1 EACH BLST.W.DEV IH SCH (09:26)
[2018-01-27] MEDS: METOCLOPRAMIDE HCL 10 MG TABLET PO SCH ×3 (09:27→16:45)
[2018-01-27] MEDS: METOPROLOL TARTRATE 50 MG TABLET PO SCH ×2 (09:27→21:00)
[2018-01-27] MEDS: APIXABAN 2.5 MG TABLET PO SCH ×2 (09:27→16:45)
[2018-01-27] MEDS: CALCITRIOL 0.25 MCG CAPSULE PO SCH ×2 (09:27→16:45)
--- NOTE | 2018-01-27 11:00 | NUR ---
SPOKE TO LABORATORY. LABORATORY INFORMED THAT PATIENT IS REFUSING BLOOD DRAWS. I SPOKE TO THE PATIENT AND CONVINCED THE PATIENT TO ALLOW LABORATORY TO DRAW BLOOD FOR CBC. PATIENT AGREED. INFORMED LABORATORY THAT PATIENT AGREED TO HAVE LABS DRAWN.
[2018-01-27 11:41] LABS: BASOPHILS % (AUTO) 0.4 % (0.0-2.0); EOSINOPHILS % (AUTO) 1.2 % (0.0-6.0); HEMATOCRIT 22 % (33-45); HEMOGLOBIN 7.1 g/dL (11.5-14.8); LYMPHOCYTES # (AUTO) 0.4 /CMM (0.8-4.8); LYMPHOCYTES % (AUTO) 9.3 % (20.0-44.0); MEAN CORPUSCULAR HEMOGLOBIN 27 PG (26.0-33.0); MEAN CORPUSCULAR HGB CONC 33 g/dl (31.0-36.0); MEAN CORPUSCULAR VOLUME 82 fL (82-100); MONOCYTES # (AUTO) 0.2 /CMM (0.1-1.30); MONOCYTES % (AUTO) 4.2 % (2.0-12.0); NEUTROPHILS # (AUTO) 4.1 /CMM (1.8-8.9); NEUTROPHILS % (AUTO) 84.9 % (43.0-81.0); PLATELET COUNT (AUTO) 91 /CMM (150-450); RDW COEFFICIENT OF VARIATION 16.7 (11.5-15.0); RED BLOOD CELL COUNT(AUTO) 2.65 MIL/uL (4.0-5.2); WHITE BLOOD COUNT (AUTO) 4.8 K/uL (4.3-11.0)
[2018-01-27 12:14] LABS: CARBON DIOXIDE 22 mmol/L (21-32); CHLORIDE 98 mmol/L (98-107); CREATININE 5.5 mg/dL (0.6-1.3); GLUCOSE 87 mg/dL (74-106); MAGNESIUM 2.2 mg/dL (1.8-2.4); PHOSPHORUS 4.5 mg/dL (2.5-4.9); POTASSIUM 4.8 mmol/L (3.5-5.1); SODIUM SERUM 131 mmol/L (136-145); UREA NITROGEN, BLOOD 61 mg/dL (7-18)
[2018-01-27 13:07] LABS: BAND % (MANUAL) 1 % (0.0-5.0); LYMPHOCYTES % (MANUAL) 5 % (16-48); MONOCYTES % (MANUAL) 8 % (0-11.0); NEUTROPHILS % (MANUAL) 86 (42-76)
[2018-01-27 16:00] VITALS: BP 129/59
--- NOTE | 2018-01-27 18:34 | NUR ---
MS RN CLOSING NOTES PATIENT IS RESTING IN BED. IN NO APPARENT DISTRESS. BEDSIDE RAILS ARE UPX2. BED IS LOCKED AND LOWERED. CALL LIGHT IS WITHIN REACH. IV LINE IS INTACT AND PATENT. ALL NEEDS WERE MET. WILL ENDORSE CARE TO EDUCATION COURSES SALES REPRESENTATIVE NURSE FOR MACK.
--- NOTE | 2018-01-27 19:05 | NUR ---
2.5 L OUT FROM HEMODIALYSIS.
[2018-01-27 20:00] VITALS: BP 101/48
[2018-01-28] VITALS (8 sets, daily range): BP systolic 91–97; BP diastolic 43–54
[2018-01-28 07:25] LABS: BASOPHILS % (AUTO) 0.9 % (0.0-2.0); EOSINOPHILS % (AUTO) 1.3 % (0.0-6.0); HEMATOCRIT 26 % (33-45); HEMOGLOBIN 8.6 g/dL (11.5-14.8); LYMPHOCYTES # (AUTO) 0.5 /CMM (0.8-4.8); LYMPHOCYTES % (AUTO) 10.5 % (20.0-44.0); MEAN CORPUSCULAR HEMOGLOBIN 28 PG (26.0-33.0); MEAN CORPUSCULAR HGB CONC 33 g/dl (31.0-36.0); MEAN CORPUSCULAR VOLUME 84 fL (82-100); MONOCYTES # (AUTO) 0.3 /CMM (0.1-1.30); MONOCYTES % (AUTO) 6.9 % (2.0-12.0); NEUTROPHILS # (AUTO) 3.7 /CMM (1.8-8.9); NEUTROPHILS % (AUTO) 80.4 % (43.0-81.0); PLATELET COUNT (AUTO) 69 /CMM (150-450); RDW COEFFICIENT OF VARIATION 16.5 (11.5-15.0); RED BLOOD CELL COUNT(AUTO) 3.11 MIL/uL (4.0-5.2); WHITE BLOOD COUNT (AUTO) 4.6 K/uL (4.3-11.0)
--- NOTE | 2018-01-28 07:30 | NUR ---
Nurse Initial note Received patient from shift supervisor rn RNFarhad. Patient lying in bed eyes open quiet. IV right forearm. On room air with sign of respiratory distress. Generalized edema visible. Patient is Yoruba speaking only
[2018-01-28 07:38] LABS: CALCIUM, SERUM 8.8 mg/dL (8.5-10.1); CARBON DIOXIDE 25 mmol/L (21-32); CHLORIDE 100 mmol/L (98-107); CREATININE 4.4 mg/dL (0.6-1.3); GLUCOSE 105 mg/dL (74-106); POTASSIUM 4.3 mmol/L (3.5-5.1); SODIUM SERUM 135 mmol/L (136-145); UREA NITROGEN, BLOOD 41 mg/dL (7-18)
[2018-01-28 08:05] LABS: BAND % (MANUAL) 2 % (0.0-5.0); EOSINOPHILS % (MANUAL) 2 % (0-4); LYMPHOCYTES % (MANUAL) 8 % (16-48); MONOCYTES % (MANUAL) 7 % (0-11.0); NEUTROPHILS % (MANUAL) 81 (42-76)
[2018-01-28] MEDS: FLUTICASONE/VILANTEROL 1 EACH BLST.W.DEV IH SCH (08:50)
[2018-01-28] MEDS: SUCRALFATE 1 G TABLET PO SCH (08:59)
[2018-01-28] MEDS: CALCITRIOL 0.25 MCG CAPSULE PO SCH (08:59)
[2018-01-28] MEDS: APIXABAN 2.5 MG TABLET PO SCH (09:00)
[2018-01-28] MEDS: METOCLOPRAMIDE HCL 10 MG TABLET PO SCH ×2 (09:00→13:03)
[2018-01-28] MEDS: METOPROLOL TARTRATE 50 MG TABLET PO SCH (09:00)
[2018-01-28] MEDS: PANTOPRAZOLE 40 MG TABLET.DR PO SCH (09:06)
--- NOTE | 2018-01-28 15:53 | NUR ---
Report given to nurse Quan at [facility]
--- NOTE | 2018-01-28 17:26 | NUR ---
Patient discharged to [facility] accompanied by 2 engine house helper. Patient was transported on gurney by ambulance named [facility]. Patient in stable conditon, on room air with no respiratory distress. IV removed with tip intact. All belongings sent with patient. Printed after care material given. Patient refused to sign discharge paper. Pictures of wounds taken before patient discharged
== END 2018-01-28 17:10 | DRG 280 ==
LOC: ER 14:42 → EDSEX 14:42 → TELE-TD 16:26 → ICU 19:10 → TELE-TD 01-22 10:26 → TELE1 01-22 16:20 → MEDSG1 01-23 11:37
PROVIDERS: ADMIT Nurse Practitioner Acute Care; ATTEND Nurse Practitioner Acute Care
PROC: 5A1D70Z Performance of Urinary Filtration, Intermittent, Less than 6 Hours Per Day (ICD-10-PCS; 2018-01-22)
PROC: 30233N1 Transfusion of Nonautologous Red Blood Cells into Peripheral Vein, Percutaneous Approach (ICD-10-PCS; 2018-01-24)
PROC: 5A1D70Z Performance of Urinary Filtration, Intermittent, Less than 6 Hours Per Day (ICD-10-PCS; 2018-01-24)
PROC: 0DB68ZX Excision of Stomach, Via Natural or Artificial Opening Endoscopic, Diagnostic (ICD-10-PCS; 2018-01-26)
PROC: 0DB48ZX Excision of Esophagogastric Junction, Via Natural or Artificial Opening Endoscopic, Diagnostic (ICD-10-PCS; principal; 2018-01-26 12:07)
PROC: 5A1D70Z Performance of Urinary Filtration, Intermittent, Less than 6 Hours Per Day (ICD-10-PCS; 2018-01-27)
DX: I48.91 Unspecified atrial fibrillation (principal); K25.4 Chronic or unspecified gastric ulcer with hemorrhage; I21.A1 Myocardial infarction type 2; N18.6 End stage renal disease; I13.2 Hypertensive heart and chronic kidney disease with heart failure and with stage 5 chronic kidney disease, or end stage renal disease; D68.59 Other primary thrombophilia; E87.1 Hypo-osmolality and hyponatremia; C90.00 Multiple myeloma not having achieved remission; M84.411A Pathological fracture, right shoulder, initial encounter for fracture; I50.9 Heart failure, unspecified; E88.09 Other disorders of plasma-protein metabolism, not elsewhere classified; D63.8 Anemia in other chronic diseases classified elsewhere; D69.6 Thrombocytopenia, unspecified; F41.9 Anxiety disorder, unspecified; Z99.2 Dependence on renal dialysis; E87.8 Other disorders of electrolyte and fluid balance, not elsewhere classified; I95.9 Hypotension, unspecified; R73.9 Hyperglycemia, unspecified; R74.0 Nonspecific elevation of levels of transaminase and lactic acid dehydrogenase [LDH]; G90.8 Other disorders of autonomic nervous system; E87.6 Hypokalemia; E05.90 Thyrotoxicosis, unspecified without thyrotoxic crisis or storm; K20.9 Esophagitis, unspecified; K44.9 Diaphragmatic hernia without obstruction or gangrene; G89.29 Other chronic pain
CPT/HCPCS: 36415; 71045-TC; 73502; 80048-TC; 80053-TC; 80061-TC; 80076-TC; 82272-TC; 82728-TC; 82962-TC; 83540-TC; 83605-TC; 83735-TC; 84100-TC; 84439-TC; 84443-TC; 84484-TC; 85025-TC; 85730-TC; 86850-TC; 86921-TC; 87040-TC; 87081-TC; 88305-TC; 88313-TC; 88342; 90935-TC; 92521; 92526; 93307-TC; 97110-TC; 97116-TC; 97530-TC; A4565; A4606; J0885; J1650; J3475; J3480; J3490; J7030; J7040; J7050; J7060; J8597; P9016-BL; Z7610

== ENCOUNTER 2018-02-14 18:24 | Inpatient (IN) | payer MEDICARE, OTHER ==
[~2018-02-14] VITALS: Ht 152.4 cm; Wt 56.5 kg
[~2018-02-14 18:24] MED LIST: AMLO5TAB2 PO; BUDE10.2 IH; CALC0.5C11 PO; CLON0.1T PO; ERGO500014 PO; LOSA100T15 PO; METO-295 PO; METO25TA3 PO; ONDA4TAB10 PO; PANT40TA2 PO; SUCR1TAB PO
--- NOTE | 2018-02-14 18:24 | NUR ---
BB PRIVATE EMS FROM [facility] FOR RT SHOULDER PAIN NOTED WHILE DOING PHYSICAL THERAPY. NO TRAUMA. VSS NO ACUTE DISTRESS OTHER THAN WHEN RIGHT ARM IS MOVED. ALERT AND ORIENTED BUT QATARI SPEAKING. WILL CONTINUE TO MONITOR FOR ANY CHANGES DURING THE SHIFT.
--- NOTE | 2018-02-14 18:25 | NUR ---
ER MD EMERSON AT BEDSIDE
--- NOTE | 2018-02-14 20:02 | NUR ---
CALLED [facility] INSTRUCTIONAL TECHNOLOGY SPECIALIST WAS PAGED.
[2018-02-14 20:10] LABS: CALCIUM, SERUM 10.5 mg/dL (8.5-10.1); CARBON DIOXIDE 30 mmol/L (21-32); CHLORIDE 98 mmol/L (98-107); CREATININE 3.7 mg/dL (0.6-1.3); GLUCOSE 247 mg/dL (74-106); POTASSIUM 4.9 mmol/L (3.5-5.1); SODIUM SERUM 132 mmol/L (136-145); UREA NITROGEN, BLOOD 24 mg/dL (7-18)
[2018-02-14 20:22] LABS: BASOPHILS % (AUTO) 0.2 % (0.0-2.0); EOSINOPHILS % (AUTO) 0.2 % (0.0-6.0); HEMATOCRIT 31 % (33-45); HEMOGLOBIN 10.1 g/dL (11.5-14.8); LYMPHOCYTES # (AUTO) 0.9 /CMM (0.8-4.8); LYMPHOCYTES % (AUTO) 25.1 % (20.0-44.0); MEAN CORPUSCULAR HEMOGLOBIN 28 PG (26.0-33.0); MEAN CORPUSCULAR HGB CONC 33 g/dl (31.0-36.0); MEAN CORPUSCULAR VOLUME 84 fL (82-100); MONOCYTES # (AUTO) 0.1 /CMM (0.1-1.30); MONOCYTES % (AUTO) 2.1 % (2.0-12.0); NEUTROPHILS # (AUTO) 2.6 /CMM (1.8-8.9); NEUTROPHILS % (AUTO) 72.4 % (43.0-81.0); PLATELET COUNT (AUTO) 234 /CMM (150-450); RDW COEFFICIENT OF VARIATION 15.5 (11.5-15.0); RED BLOOD CELL COUNT(AUTO) 3.66 MIL/uL (4.0-5.2); WHITE BLOOD COUNT (AUTO) 3.6 K/uL (4.3-11.0)
--- NOTE | 2018-02-14 20:30 | NUR ---
XRAY DONE AT BEDSIDE
--- NOTE | 2018-02-14 20:33 | NUR ---
REPORT GIVEN TO MEGAN
[2018-02-14 21:40] VITALS: BP 129/84
--- NOTE | 2018-02-14 21:40 | NUR ---
RN NOTES ADMITTED A 72 YEARS OLD FEMALE, TANZANIAN PT FROM ER VIA [facility] WITH PRIMARY DIAGNOSIS OF ACUTE PATHOLOGICAL FRACTURE OF RIGHT HUMERUS AND RIGHT DISTAL CLAVICLE. PT IS ALERT AND ORIENTED X3, TANZANIAN SPEAKING ONLY, DAUGHTER AT BEDSIDE HUMAN RESOURCES BENEFITS SPECIALIST. PT DENIES PAIN AT THIS TIME ONLY WHEN SHE MOVES AROUND 3/10 PAIN ON RIGHT SHOULDER. KEPT RIGHT ARM ON A SLING. SKIN AND BODY ASSESSMENT DONE, SACRAL REDNESS NOTED. RIGHT UPPER CHEST ELIZABETH CATH NOTED AND RIGHT FOREARM IV ACCESS PATENT AND INTACT. KEPT BED IN THE LOWEST POSITION, LOCKED, SIDE RAILS X2 UP WITH CALL LIGHT WITHIN REACH. SAFETY MEASURES AND FALL PRECAUTION OBSERVED. PLAN OF CARE DISCUSSED WITH THE PT AND DAUGHTER. KEPT COMFORTABLE AND ATTENDED. WILL CONTINUE TO MONITOR PT.
[2018-02-14] MEDS ORDERED: *INSULIN REGULAR(HUMULIN R)HUM 100 UNIT/ML VIAL SQ PRN (23:00)
[2018-02-14] MEDS ORDERED: Z GUARD REMEDY 2 OZ OINT TP PRN (23:00)
[2018-02-14] MEDS ORDERED: MAG HYDROX/AL HYDROX/SIMETH 30 ML UDC PO PRN (23:00)
[2018-02-14] MEDS ORDERED: ZOLPIDEM TARTRATE 5 MG TABLET PO PRN (23:00)
[2018-02-14] MEDS ORDERED: ACETAMINOPHEN 325 MG TABLET PO PRN (23:00)
[2018-02-14] MEDS ORDERED: ONDANSETRON HCL/PF 4 MG/2 ML VIAL IVP PRN (23:00)
[2018-02-14] MEDS ORDERED: DEXTROSE 50%-WATER 50 ML DISP.SYRIN IV PRN (23:00)
[2018-02-14] MEDS ORDERED: IV D5W 1,000 ML IV PRN (23:30)
[2018-02-15] MEDS: MORPHINE SULFATE INJ 2 MG/ML DISP.SYRIN IV PRN (01:57)
--- NOTE | 2018-02-15 01:57 | NUR ---
RN NOTES PT COMPLAINS OF PAIN ON HER RIGHT SHOULDER 02/10, MORPHINE 2 MG GIVEN IV PUSH. WILL CONTINUE TO MONITOR PT.
[2018-02-15] MEDS: BLOOD SUGAR DIAGNOSTIC 1 EACH STRIP IN SCH ×4 (06:51→21:42)
[2018-02-15] MEDS: INSULIN REGULAR, HUMAN 100 UNIT/ML 3 ML VIAL SQ PRN ×2 (06:53→13:05)
--- NOTE | 2018-02-15 07:25 | NUR ---
RN NOTES PT SLEPT WELL OVERNIGHT. KEPT PAIN AT TOLERABLE LEVEL WITH CURRENT REGIMEN. KEPT RIGHT ARM ON SHOULDER SLING. NO INSULIN SLIDING SCALE GIVEN, PER PT AND DAUGHTER , PT IS NOT DIABETIC. KEPT COMFORTABLE AND ATTENDED. SAFETY MEASURES AND FALL PRECAUTION OBSERVED. ENDORSED TO MORNING RN FOR CONTINUITY OF CARE.
--- NOTE | 2018-02-15 07:30 | NUR ---
RN NOTES PATIENT AWAKE, A/OX4, BREATHING EVEN AND UNLABORED, DENIES PAIN OR DISCOMFORT AT THIS TIME. NEEDS ATTENDED, KEPT COMFORTABLE, CALL LIGHT WITHIN REACH, WILL CONTINUE TO MONITOR.
--- NOTE | 2018-02-15 08:06 | NUR ---
RN NOTES PATIENT SEEN BY DR. PRUETT, PER MD, WILL CALL PATIENT'S DAUGHTER, CLARIFIED IF PATIENT CAN HAVE FOOD, PER MD, OK FOR PATIENT TO EAT AT THIS TIME. ORDER NOTED AND CARRIED OUT.
[2018-02-15 08:17] VITALS: BP 139/63
[2018-02-15] MEDS: PANTOPRAZOLE 40 MG VIAL IV SCH (09:10)
[2018-02-15 12:20] LABS: BASOPHILS % (AUTO) 0.4 % (0.0-2.0); EOSINOPHILS % (AUTO) 0.2 % (0.0-6.0); HEMATOCRIT 28 % (33-45); HEMOGLOBIN 8.9 g/dL (11.5-14.8); LYMPHOCYTES # (AUTO) 1.7 /CMM (0.8-4.8); LYMPHOCYTES % (AUTO) 21.9 % (20.0-44.0); MEAN CORPUSCULAR HEMOGLOBIN 27 PG (26.0-33.0); MEAN CORPUSCULAR HGB CONC 32 g/dl (31.0-36.0); MEAN CORPUSCULAR VOLUME 84 fL (82-100); MONOCYTES # (AUTO) 0.8 /CMM (0.1-1.30); MONOCYTES % (AUTO) 9.9 % (2.0-12.0); NEUTROPHILS # (AUTO) 5.2 /CMM (1.8-8.9); NEUTROPHILS % (AUTO) 67.6 % (43.0-81.0); PLATELET COUNT (AUTO) 236 /CMM (150-450); RDW COEFFICIENT OF VARIATION 15.4 (11.5-15.0); RED BLOOD CELL COUNT(AUTO) 3.28 MIL/uL (4.0-5.2); WHITE BLOOD COUNT (AUTO) 7.6 K/uL (4.3-11.0)
[2018-02-15 12:31] LABS: CALCIUM, SERUM 10.2 mg/dL (8.5-10.1); CARBON DIOXIDE 27 mmol/L (21-32); CHLORIDE 95 mmol/L (98-107); CREATININE 4.3 mg/dL (0.6-1.3); GLUCOSE 174 mg/dL (74-106); MAGNESIUM 1.8 mg/dL (1.8-2.4); POTASSIUM 4.4 mmol/L (3.5-5.1); SODIUM SERUM 130 mmol/L (136-145); UREA NITROGEN, BLOOD 28 mg/dL (7-18)
[2018-02-15 12:37] LABS: CHOLESTEROL 154 mg/dL (<200); HDL CHOLESTEROL 48 mg/dL (40-60); LDL 72 mg/dL (0-99); TRIGLYCERIDES 145 mg/dL (30-150)
[2018-02-15 13:00] LABS: THYROID STIMULATING HORMONE 1.831 uIU/mL (0.358-3.74)
--- NOTE | 2018-02-15 13:22 | NUR ---
WOUND CARE CONSULT: PT PRESENTS WITH SCARRING TO SACRAL/BUTTOCKS AREA (SKIN TAG NOTED), IRRITATION TO PERIANAL/GLUTEAL CREASE AREA, PRESENT ON ADMISSION. PT ABLE TO ASSIST WITH TURNING AND REPOSITIONING BUT RT ARM SPLINT IN PLACE. CURRENT TONY SCORE IS 19. ALL SKIN PROTECTION AND SKIN CARE RECOMMENDATIONS DISCUSSED WITH NURSING STAFF. WILL SEE PRN. LIANG IN AGREEMENT WITH PLAN OF CARE. Addendum: 02/15/18 at 1324 by VIC GONZALEZ WNDNU Amended: Links added.
--- NOTE | 2018-02-15 14:31 | NUR ---
PT. REFUSING FOR CT, RN (RENY) IS AWARE.
[2018-02-15 16:25] VITALS: BP 141/64
--- NOTE | 2018-02-15 18:28 | NUR ---
RN NOTES HEMODIALYSIS TREATMENT ONGOING RIGHT NOW, PATIENT A/OX3, NO DISTRESS NOTED, DENIES PAIN AT THIS TIME. ENCOURAGED PATIENT TO TURN AND REPOSITION, Z-GUARD APPLIED, SACRAL COVERED WITH MEPILEX, NEEDS ATTENDED AND MET, CALL LIGHT WITHIN REACH, WILL ENDORSE TO SURVEILLANCE SYSTEMS ENGINEER FOR MACK.
--- NOTE | 2018-02-15 19:30 | NUR ---
RN NOTES RECEIVED PATIENT IN BED AWAKE, AO X 3, ABLE TO MAKE NEEDS KNOWN. NO ACUTE DISTRESS NOTED. DENIES PAIN AT THIS TIME. RIGHT UPPER EXTREMITY IN SLING. IV SITE PATENT, INTACT; FLUSHED. SAFETY REMINDERS GIVEN. ON LOW BED WITH BILATERAL UPPER SIDE RAILS UP. CALL DAVE WITHIN EASY REACH. WILL CONTINUE TO MONITOR.
[2018-02-15 20:00] VITALS: BP 130/61
[2018-02-16] MEDS: HYDROCODONE/APAP 5/325MG 1 EACH TABLET PO PRN (02:46)
--- NOTE | 2018-02-16 06:00 | NUR ---
RN NOTES PATIENT IN BED ASLEEP, EASILY AROUSABLE. RESPIRATIONS EVEN. NO SIGNS OF PAIN NOTED. NEEDS ATTENDED. KEPT CLEAN, DRY, COMFORTABLE. SAFETY PRECAUTIONS AND COMFORT MEASURES IN PLACE. WILL GIVE REPORT TO DAY SHIFT FOR CONTINUITY OF CARE.
[2018-02-16] MEDS: BLOOD SUGAR DIAGNOSTIC 1 EACH STRIP IN SCH ×4 (06:38→22:00)
--- NOTE | 2018-02-16 07:10 | NUR ---
RN NOTES PT IS SITTING UP IN BED, RESTING COMFORTABLY. PT ON RA, RESPIRATIONS ARE EVEN AND UNLABORED. IV ON RFA INTACT AND SL. NO SIGNS OF DISTRESS NOTED. SAFETY MEASURES ARE IN PLACE, CALL LIGHT IS IN REACH. WILL CONTINUE TO MONITOR.
[2018-02-16 08:01] VITALS: BP 145/66
[2018-02-16] MEDS: PANTOPRAZOLE 40 MG VIAL IV SCH (08:44)
[2018-02-16] MEDS: MAGNESIUM HYDROXIDE 30 ML UDC PO PRN (08:49)
[2018-02-16] MEDS: MORPHINE SULFATE INJ 2 MG/ML DISP.SYRIN IV PRN (11:15)
--- NOTE | 2018-02-16 12:00 | NUR ---
RN NOTES PT WAS EXPLAINED TO IN [facility] OF PURPOSE AND IMPORTANCE OF HAVING MRI SCAN DONE TODAY. PATIENTS DAUGHTER SPOKE WITH PATIENT WELL TO HAVE MRI DONE. PT AGREED, BUT AFTER TRANSPORTING TO MRI, PT REFUSED TO HAVE SCAN DONE. HOSPITALIST MADE AWARE.
[2018-02-16 15:55] VITALS: BP 139/70
--- NOTE | 2018-02-16 17:30 | NUR ---
RN NOTES PER FAMILY REQUEST, DOES NOT WANT PATIENT TO HAVE ACCUCHECKS DONE. STATES "SHE DOES NOT HAVE DIABETES, SHE DOES NOT NEED THEM DONE." WILL ENDORSE TO [employer] ARCHITECT RN. PREVIOUS BLOOD SUGARS WERE WNL. FAMILY ALSO REQUESTS TO HAVE HOSPITAL RECEIVE INFORMATION FROM [facility]. MEDICAL RELEASE REQUEST FORM FAXED TODAY. WILL ENDORSE TO [employer] ARCHITECT RN TO FOLLOW UP WITH FACILITY.
[2018-02-16 17:36] LABS: CALCIUM, SERUM 9.9 mg/dL (8.5-10.1); CARBON DIOXIDE 29 mmol/L (21-32); CHLORIDE 97 mmol/L (98-107); CREATININE 3.7 mg/dL (0.6-1.3); GLUCOSE 82 mg/dL (74-106); MAGNESIUM 1.7 mg/dL (1.8-2.4); POTASSIUM 4.7 mmol/L (3.5-5.1); SODIUM SERUM 129 mmol/L (136-145); UREA NITROGEN, BLOOD 24 mg/dL (7-18)
[2018-02-16 18:02] LABS: BASOPHILS % (AUTO) 0.2 % (0.0-2.0); EOSINOPHILS % (AUTO) 0.6 % (0.0-6.0); HEMATOCRIT 25 % (33-45); LYMPHOCYTES # (AUTO) 1.3 /CMM (0.8-4.8); MEAN CORPUSCULAR HEMOGLOBIN 27 PG (26.0-33.0); MEAN CORPUSCULAR HGB CONC 32 g/dl (31.0-36.0); MEAN CORPUSCULAR VOLUME 84 fL (82-100); MONOCYTES # (AUTO) 0.5 /CMM (0.1-1.30); MONOCYTES % (AUTO) 9.6 % (2.0-12.0); NEUTROPHILS # (AUTO) 3.6 /CMM (1.8-8.9); NEUTROPHILS % (AUTO) 66.6 % (43.0-81.0); PLATELET COUNT (AUTO) 164 /CMM (150-450); RDW COEFFICIENT OF VARIATION 16.2 (11.5-15.0); RED BLOOD CELL COUNT(AUTO) 3.02 MIL/uL (4.0-5.2); WHITE BLOOD COUNT (AUTO) 5.4 K/uL (4.3-11.0)
[2018-02-16 18:10] LABS: FERRITIN 2914 ng/mL (8-388)
--- NOTE | 2018-02-16 18:50 | NUR ---
RN NOTES PT IS SITTING UP IN BED, AWAKE AND RESTING COMFORTABLY. PT ON 2L O2, RESPIRATIONS ARE EVEN AND UNLABORED. IV ON RFA INTACT AND SL. PT WAS PROVIDED WITH SKIN CARE AND KEPT CLEAN AND DRY. ALL PT NEEDS MET. ARM BRACE IS IN PLACE, NO SIGNS OF IRRITATION NOTED OR NUMBNESS IN ARM OR HAND. NO SIGNS OF DISTRESS NOTED. SAFETY MEASURES ARE IN PLACE, CALL LIGHT IS IN REACH. WILL ENDORSE TO MANAGER BEHAVIORAL RN FOR CONTINUITY OF CARE.
[2018-02-16 20:00] VITALS: BP_SYST 136; BP_SYST 137; BP_DIAS 66
--- NOTE | 2018-02-16 20:00 | NUR ---
MS RN NOTES RECEIVED ON BED A/O X3,SPEAK BRUNEIAN ONLY,BREATHING REGULAR,NOT IN ANY FORM DISTRESS.WITH RFA SALINE LOCK #20 FOR MEDS,LEFT AV FISTULA FOR HD TREATMENT.WITH GOOD THRILL AND BRUIT NOTED.ON DVT PUMP FOR DVT PROPHYLAXIS.DENIES DISCOMFORTS AT THE MOMENT.CALL LIGHT IN REACH,NEEDS ANTICIPATED.
[2018-02-16 21:35] LABS: IRON, SERUM 20 ug/dl (50-175); TOTAL IRON BINDING CAPACITY 129 ug/dl (250-450)
[2018-02-17] MEDS: MAGNESIUM HYDROXIDE 30 ML UDC PO PRN (00:45)
--- NOTE | 2018-02-17 00:45 | NUR ---
RN NOTES COMPLAINED OF CONSTIPATION- MOM 30 ML PO GIVEN ORDERED
--- NOTE | 2018-02-17 00:45 | NUR ---
MS RN NOTES C/O CONSTIPATION,MOM 30ML PO GIVEN PER PATIENT REQUEST.
--- NOTE | 2018-02-17 01:00 | NUR ---
MS RN NOTES SLEEPING,KEPT WARM AND COMFORTABLE.
--- NOTE | 2018-02-17 05:30 | NUR ---
MS RN NOTES OFFERED BLOOD SUGAR CHECK BUT REFUSED
--- NOTE | 2018-02-17 06:00 | NUR ---
MS RN NOTES HAD BOWEL MOVEMENT X1.MORNING CARE RENDERED,REPOSITION,SLING IN PLACE ON RIGHT ARM.OFFERED PAIN MEDICINE BUT REFUSED.POSSIBLE TRANSFER TO [facility] PER FAMILY REQUEST.CALL LIGHT IN REACH,NEEDS ATTENDED.WILL ENDORSE TO STEFFANIE BERMUDEZ FOR MACK.
[2018-02-17] MEDS: BLOOD SUGAR DIAGNOSTIC 1 EACH STRIP IN SCH ×4 (07:30→22:00)
[2018-02-17 08:00] VITALS: BP 152/63
--- NOTE | 2018-02-17 08:00 | NUR ---
MS 2 RN AM NOTES RECEIVED ON BED A/O X3,SPEAK OMANI ONLY,BREATHING REGULAR,NOT IN ANY FORM DISTRESS.WITH RFA SALINE LOCK #20 FOR MEDS,LEFT AV FISTULA FOR HD TREATMENT.WITH GOOD THRILL AND BRUIT NOTED.ON DVT PUMP FOR DVT PROPHYLAXIS.DENIES DISCOMFORT AT THE MOMENT.GENTLY TURNED TO HER LEFT SIDE WITH 2 PERSON ASSIST -PT TEACHING DONE ON THE IMPORTANCE OF TURNING AND REPOSITIONING.PT HAS SACRAL REDNESS,PERINEAL/GLUTEAL CREASE IRRITATION WITH TX ONGOING.CALL LIGHT IN REACH,
[2018-02-17] MEDS: PANTOPRAZOLE 40 MG VIAL IV SCH (08:11)
--- NOTE | 2018-02-17 10:00 | NUR ---
WITH ONGOING HEMODIALYSIS PROCEDURE AT THIS TIME-WITH STABLE V/S.
--- NOTE | 2018-02-17 11:52 | NUR ---
COMPLETED HEMODIALYSIS PROCEDURE WITH STABLE V/S.WITH 2 LITERS OUTPUT.BP 131/55 HR 96.PT TOLERATED PROCEDURE WELL.
--- NOTE | 2018-02-17 11:56 | NUR ---
PT/FAMILY HAS BEEN REFUSING BLOOD SUGAR CHECK SINCE LAST NIGHT INSPITE OF EXPLAINING ITS RISKS,CONSEQUENCES AND BENEFITS,PT/FAMILY INSISTS TO REFUSE.
[2018-02-17 16:00] VITALS: BP 138/63
--- NOTE | 2018-02-17 18:00 | NUR ---
PT HAS BEEN REFUSING TO BE TURNED EVERY TWO HRS INSPITE OF EXPLAINING ITS RISKS,BENEFITS AND CONSEQUENCES.PT/FAMILY TEACHING DONE BUT PT IS NON COMPLIANT.FAMILY IS REQUESTING FOR AIR MATTRESS FOR THE PT.EXPLAINED TO THE FAMILY THAT THE PT CAN ACTUALLY TURN WITH ASSIST IN BED BUT PT IS NON COMPLIANT AND WE ENCOURAGED PT TO BE MOBILE POSSIBLE TO PREVENT BLOOD CLOTS.PT EVEN REFUSED TO USE DVT PUMPS INSPITE OF EXPLAINING ITS RISKS AND BENEFITS.PT HAS SACRAL REDNESS,PERINEAL AND GLUTEAL CREASE IRRITATION-APPLIED Z GUARD AND MEPILEX ON SACRAL AREA.
--- NOTE | 2018-02-17 19:30 | NUR ---
MS RN NOTES RECEIVED ON BED A/O X2-3,SPEAK SAO TOMEAN ONLY,RIGHT ARM SLING IN USED,WITH LEFT UPPER ARM AV FISTULA FOR HD TREATMENT.SALINE LOCK RIGHT HAND INTACT AND PATENT.SCD IN USED FOR DVT PROPHYLAXIS.CALL LIGHT IN REACH,NEEDS ANTICIPATED.
[2018-02-17 20:00] VITALS: BP 162/75
[2018-02-17 20:03] VITALS: BP 162/75
[2018-02-17] MEDS: HYDROCODONE/APAP 5/325MG 1 EACH TABLET PO PRN (20:04)
--- NOTE | 2018-02-17 20:04 | NUR ---
MS RN NOTES SCREAMING.CLAIMED RIGHT SHOULDER 6/10 ON PAIN SCALE. NORCO 5/325MG,1TAB PO GIVEN
--- NOTE | 2018-02-17 23:00 | NUR ---
MS RN NOTES SLEEPING AT THIS TIME,KEPT WARM AND COMFORTABLE.
--- NOTE | 2018-02-18 06:02 | NUR ---
MS RN NOTES SLEPT WELL WITH NORCO,ABLE TO REPOSITION SELF AND PREFERS TO LAY ON HER BACK.SACRAL REDNESS MANAGE WITH REMEDY AND MEPILEX.IN NO ACUTE DISTRESS.D/C PLAN TODAY TO PENNYCandice ALEXIS.IN NO ACUTE DISTRESS.WILL ENDORSE TO STEFFANIE CORNEJO FOR MACK.
[2018-02-18] MEDS: BLOOD SUGAR DIAGNOSTIC 1 EACH STRIP IN SCH ×3 (06:36→17:30)
[2018-02-18 08:00] VITALS: BP 129/73
--- NOTE | 2018-02-18 08:00 | NUR ---
MS 2 RN AM NOTES RECEIVED ON BED A/O X3,SPEAK COSTA RICAN ONLY,BREATHING REGULAR,NOT IN ANY FORM DISTRESS.WITH RFA SALINE LOCK #20 FOR MEDS,LEFT AV FISTULA FOR HD TREATMENT.WITH GOOD THRILL AND BRUIT NOTED.ON DVT PUMP FOR DVT PROPHYLAXIS.DENIES DISCOMFORT AT THE MOMENT.GENTLY TURNED TO HER LEFT SIDE WITH 2 PERSON ASSIST -PT TEACHING DONE ON THE IMPORTANCE OF TURNING AND REPOSITIONING.PT HAS SACRAL REDNESS,PERINEAL/GLUTEAL CREASE IRRITATION WITH TX ONGOING.CALL LIGHT IN REACH,
--- NOTE | 2018-02-18 08:02 | NUR ---
PT REFUSED BLOOD DRAW AND ACCUCHECK FOR AM LABS INSPITE OF EXPLAINING ITS RISKS AND BENEFITS.
[2018-02-18] MEDS: PANTOPRAZOLE 40 MG VIAL IV SCH (08:12)
[2018-02-18] MEDS: HYDROCODONE/APAP 5/325MG 1 EACH TABLET PO PRN ×2 (08:29→16:57)
[2018-02-18] MEDS ORDERED: HYDR-3972 PO (11:57)
--- NOTE | 2018-02-18 14:17 | NUR ---
PT'S SISTER IN LAW WAS HERE AND EXPLAINED TO HER ABOUT PT'S SACRAL ABRASION THAT IS WORSENING(PLS SEE PHOTO).PT TEACHING HAS BEEN DONE ABOUT THE IMPORTANCE OF AMBULATING AND BEING TURNED EVERY TWO HOURS-ITS RISKS AND BENEFITS BUT PT KEEPS REFUSING.
[2018-02-18 16:00] VITALS: BP 139/59
--- NOTE | 2018-02-18 17:46 | NUR ---
DISCHARGED PT TO [facility] VIA AMBULANCE WITH STABLE V/S WEARING HER RT ARM SLING.REPORT CALLED IN TO CHANTAL FERNANDES OF [facility].DENIES PAIN OR DISTRESS.INSTRUCTED AMBULANCE RETAIL BANKER TO REMIND [facility] OF PT'S F/U APPT AT [facility] FOR ORTHO APPT THIS 02/21/18 ALSO INSTRUCTED CHANTAL FERNANDES OF [facility] OF THE ORTHO F/U APPT WELL.IV H/L REMOVED TO RT HAND.WITHOUT BLEEDING NOTED.INSTRUCTED PT TO KEEP RT HAND ELEVATED WITH SMALL PILLOW BUT PT REFUSED.
== END 2018-02-18 17:45 | DRG 542 ==
LOC: ER 18:26 → MEDSG2 20:31
PROVIDERS: ADMIT Hospitalist; ATTEND Hospitalist
PROC: 5A1D70Z Performance of Urinary Filtration, Intermittent, Less than 6 Hours Per Day (ICD-10-PCS; principal; 2018-02-15)
PROC: 5A1D70Z Performance of Urinary Filtration, Intermittent, Less than 6 Hours Per Day (ICD-10-PCS; 2018-02-17)
DX: M84.521A Pathological fracture in neoplastic disease, right humerus, initial encounter for fracture (principal); N18.6 End stage renal disease; I13.11 Hypertensive heart and chronic kidney disease without heart failure, with stage 5 chronic kidney disease, or end stage renal disease; E87.1 Hypo-osmolality and hyponatremia; D68.59 Other primary thrombophilia; C90.00 Multiple myeloma not having achieved remission; Z99.2 Dependence on renal dialysis; D63.8 Anemia in other chronic diseases classified elsewhere; I25.10 Atherosclerotic heart disease of native coronary artery without angina pectoris; I48.91 Unspecified atrial fibrillation; M84.511A Pathological fracture in neoplastic disease, right shoulder, initial encounter for fracture; M43.8X4 Other specified deforming dorsopathies, thoracic region; M48.55XA Collapsed vertebra, not elsewhere classified, thoracolumbar region, initial encounter for fracture; D72.819 Decreased white blood cell count, unspecified; E83.52 Hypercalcemia; R73.9 Hyperglycemia, unspecified; J44.9 Chronic obstructive pulmonary disease, unspecified
CPT/HCPCS: 36415; 71045-TC; 73020; 73200-TC; 80048-TC; 80061-TC; 82728-TC; 82746; 82962-TC; 83540-TC; 83735-TC; 84100-TC; 84443-TC; 85025-TC; 85730-TC; 90935-TC; A4606; C9113; J1815; J2270; J7070; Z7610

== ENCOUNTER 2018-03-14 15:22 | Inpatient (IN) | payer MEDICARE, OTHER ==
[2018-03-14] VITALS (15 sets, daily range): BP systolic 100–130; BP diastolic 32–64
[~2018-03-14] VITALS: Ht 152.4 cm; Wt 59.4 kg
[~2018-03-14 15:22] MED LIST changes: -AMLO5TAB2 PO; +AMLO5TAB7 PO; +HYDR-3972 PO
--- NOTE | 2018-03-14 15:24 | NUR ---
CARMEN FROM [facility] DT LOW BP, PATIENT IS RECEIVED OBTUNDED, ON O2 VIA NC @ 3LPM SATING 98%. PATIENT'S BP 87/37 AT THIS TIME. PT NOTED WITH HD CATH ON RCW,. FISTULA NOTED ON LEFT FORARM, PT NOTED WITH RIGHT SHOULDER FRACTURE. PATIENT MISSED CHEMO TODAY PER REPORT. PENDING MD EVALUATION
--- NOTE | 2018-03-14 15:50 | NUR ---
CALLED NURSING SUP FOR ICU BED FOR THIS PATIENT
[2018-03-14] MEDS ORDERED: ALBUMIN 25% 12.5 GM/50 ML BOTTLE IV ONE (16:00)
[2018-03-14] MEDS ORDERED: HEPARIN SODIUM, PORCINE 5000 UNITS/1 ML VIAL ONE (16:03)
--- NOTE | 2018-03-14 16:08 | NUR ---
PT ADMIT TO ICU ROOM 262
--- NOTE | 2018-03-14 16:26 | NUR ---
AWITING FOR PICCLINE INSERTION. PICCLINE TEAM AWARE.
[2018-03-14 16:28] LABS: CALCIUM, SERUM 11.4 mg/dL (8.5-10.1); CARBON DIOXIDE 26 mmol/L (21-32); CHLORIDE 97 mmol/L (98-107); CREATININE 4.3 mg/dL (0.6-1.3); GLUCOSE 120 mg/dL (74-106); POTASSIUM 3.9 mmol/L (3.5-5.1); SODIUM SERUM 135 mmol/L (136-145); UREA NITROGEN, BLOOD 40 mg/dL (7-18)
[2018-03-14 16:29] LABS: TROPONIN I < 0.017 ng/mL (0.00-0.056)
[2018-03-14] MEDS ORDERED: ALBUMIN 25% 25 GM in PREMIX 1 EA IV PRN (16:30)
[2018-03-14] MEDS ORDERED: HEPARIN SODIUM, PORCINE 5000 UNITS/1 ML VIAL IV ONE (16:30)
[2018-03-14 16:35] LABS: ALANINE AMINOTRANSFERASE 138 U/L (12-78); ALBUMIN 2.1 g/dL (3.4-5.0); ALKALINE PHOSPHATASE 107 U/L (46-116); ASPARTATE AMINOTRANSFERASE 511 U/L (15-37); BILIRUBIN,DIRECT 0.1 mg/dL (0.0-0.2); BILIRUBIN,TOTAL 0.3 mg/dL (0.2-1.0); TOTAL PROTEIN, SERUM 5.5 g/dL (6.4-8.2)
--- NOTE | 2018-03-14 16:41 | NUR ---
MD EMERSON AT BEDSIDE FOR CENTRAL LINE INSERTION
--- NOTE | 2018-03-14 16:41 | NUR ---
PT. UNSTABLE FOR CT, RN (NAOMI) WILL CALL WHEN READY.
[2018-03-14 16:43] LABS: BASOPHILS % (AUTO) 0.1 % (0.0-2.0); EOSINOPHILS % (AUTO) 0.8 % (0.0-6.0); LYMPHOCYTES # (AUTO) 1.9 /CMM (0.8-4.8); LYMPHOCYTES % (AUTO) 16.7 % (20.0-44.0); MEAN CORPUSCULAR HEMOGLOBIN 29 PG (26.0-33.0); MEAN CORPUSCULAR HGB CONC 35 g/dl (31.0-36.0); MEAN CORPUSCULAR VOLUME 84 fL (82-100); MONOCYTES # (AUTO) 0.6 /CMM (0.1-1.30); MONOCYTES % (AUTO) 5.3 % (2.0-12.0); NEUTROPHILS % (AUTO) 77.1 % (43.0-81.0); PLATELET COUNT (AUTO) 376 /CMM (150-450); WHITE BLOOD COUNT (AUTO) 11.6 K/uL (4.3-11.0)
[2018-03-14 16:44] LABS: RED BLOOD CELL COUNT(AUTO) 1.72 MIL/uL (4.0-5.2)
[2018-03-14 16:45] LABS: MAGNESIUM 2.4 mg/dL (1.8-2.4)
[2018-03-14 16:47] LABS: HEMATOCRIT 14 % (33-45); PHOSPHORUS 8.7 mg/dL (2.5-4.9)
[2018-03-14] MEDS ORDERED: PHENYLEPHRINE 20 MG in IV D5W 250 ML IV PRN (17:00)
[2018-03-14 17:11] LABS: INR 1.17 (0.85-1.15)
--- NOTE | 2018-03-14 17:22 | NUR ---
ONGOING CENTRAL LINE INSERTION
[2018-03-14] MEDS ORDERED: PHENYLEPHRINE 80 MG in IV D5W 250 ML IV PRN (18:30)
[2018-03-14 18:41] LABS: BAND % (MANUAL) 2 % (0.0-5.0); EOSINOPHILS % (MANUAL) 2 % (0-4); LYMPHOCYTES % (MANUAL) 20 % (16-48); MONOCYTES % (MANUAL) 6 % (0-11.0); NEUTROPHILS % (MANUAL) 70 (42-76)
[2018-03-14] MEDS ORDERED: PIPERACILLIN /TAZOBACTAM 2.25 G in IV D5W 50 ML IV ONE (19:00)
[2018-03-14] MEDS ORDERED: VANCOMYCIN 1 GM in IV D5W 250 ML IV ONE (19:00)
[2018-03-14] MEDS ORDERED: HYDR-552 PO (19:12)
--- NOTE | 2018-03-14 19:17 | NUR ---
Patient is resting comfortably in bed with eyes closed. VSS. NAD. FAMILY AT BEDSIDE. WILL CONTINUE TO MONITOR.
--- NOTE | 2018-03-14 19:27 | NUR ---
BROUGHT TO CT.
[2018-03-14] MEDS ORDERED: MAG HYDROX/AL HYDROX/SIMETH 30 ML UDC PO PRN (19:30)
[2018-03-14] MEDS ORDERED: ONDANSETRON HCL/PF 4 MG/2 ML VIAL IVP PRN (19:30)
[2018-03-14] MEDS ORDERED: Z GUARD REMEDY 2 OZ OINT TP PRN (19:30)
[2018-03-14] MEDS ORDERED: MAGNESIUM HYDROXIDE 30 ML UDC PO PRN (19:30)
[2018-03-14] MEDS ORDERED: FEE PK DOSING 1 MIN EA MC ONE (20:00)
--- NOTE | 2018-03-14 20:00 | NUR ---
CAKE STRIPPER RCD PT FROM ER W/DX SEPSIS; PT IS ALERT ABLE TO FOLLOW SIMPLE COMMANDS. NSR/ST ON MONITOR. ON LEVOPHED AT 200 MCG/MIN; TITRATE NEEDED. DIMINISHED LUNG SOUND ON O2 2L VIA NC. SACRAL EXCORIATION NOTED; APPLIED Z GUARD AND MEPILEX. BRUISING TO MARCO; WOUND CARE CONSULT INITIATED. PER ER NURSE ZOSYN AND VANCO TO BE GIVEN THEY WERE NOT GIVEN IN ER. CONTINUE TO MONITOR.
--- NOTE | 2018-03-14 20:20 | NUR ---
PT TRANSPORTED TO ICU STABLE CONDITION. VSS. NAD. VIA ACLS TRANSP
[2018-03-14] MEDS: PHENYLEPHRINE 80 MG in IV D5W 250 ML IV PRN (21:34)
[2018-03-14] MEDS: IV NS 0.9% 250 ML IV PRN (21:39)
--- NOTE | 2018-03-14 21:45 | NUR ---
RESIDENTIAL PEST CONTROL TECHNICIAN DR PASTOR AT BEDSIDE EVALUATING PT; PER MD IF PT REMAINS STABLE GIVE TRANSFUSION IN AM WITH HD. CONTINUE TO MONITOR.
[2018-03-14 23:24] LABS: HEMOGLOBIN 4.2 g/dL (11.5-14.8)
[2018-03-15] VITALS (81 sets, daily range): BP systolic 67–149; BP diastolic 18–128
[2018-03-15] MEDS: PHENYLEPHRINE 80 MG in IV D5W 250 ML IV PRN ×3 (01:17→20:49)
[2018-03-15 03:02] LABS: OCCULT BLOOD STOOL POSITIVE (NEGATIVE)
--- NOTE | 2018-03-15 03:30 | NUR ---
LEAD JANITOR NOTE PT H/H DROPPED TO 4.2/. LAB CALLED INFORMING UNIT OF PRBC IS READY. WILL INFUSE 1 UNIT NOW. WILL MONITOR.
[2018-03-15] MEDS: PIPERACILLIN /TAZOBACTAM 2.25 G in IV D5W 50 ML IV SCH ×3 (05:31→20:43)
--- NOTE | 2018-03-15 05:56 | NUR ---
ELECTRICAL MAINTENANCE MECHANIC NOTE PT NOTED WITH INCREASED RESTLESSNESS, YELLING AND PULLING ON TUBES. SPOKE WITH WILLIE FIRER LOCOMOTIVE WITH ORDER TO PUT LEFT SOFT WRIST RESTRAINT FOR PATIENTS SAFETY AND MORPHINE 1MG IV X 1 DOSE NOW. ALSO ORDERED SWALLOW EVAL FOR TODAY PATIENT IS COUGHING A LOT AND HAVING DIFFICULTY SWALLOWING. WILL CONTINUE TO MONITOR.
[2018-03-15] MEDS ORDERED: MORPHINE SULFATE INJ 2 MG/ML DISP.SYRIN IV ONE (06:00)
--- NOTE | 2018-03-15 07:45 | NUR ---
NON MORSE INTERCEPT TECHNICIAN RECEIVED PATIENT FROM THE PREVIOUS SHIFT. PATIENT IS IN BED. NO ACUTE DISTRESS NOTED. DISORIENTED AT THIS TIME. RESTING AT THIS TIME. STABLE VITAL SIGNS. NO FEVERS. ON PRESSORS FOR BP SUPPORT. 2L NASAL CANNULA. WILL CONTINUE TO MONITOR AND PROVIDE CARE.
[2018-03-15 07:53] LABS: CALCIUM, SERUM 11.2 mg/dL (8.5-10.1); CARBON DIOXIDE 23 mmol/L (21-32); CHLORIDE 95 mmol/L (98-107); CREATININE 4.6 mg/dL (0.6-1.3); GLUCOSE 94 mg/dL (74-106); MAGNESIUM 2.2 mg/dL (1.8-2.4); PHOSPHORUS 7.7 mg/dL (2.5-4.9); POTASSIUM 3.7 mmol/L (3.5-5.1); SODIUM SERUM 131 mmol/L (136-145); UREA NITROGEN, BLOOD 46 mg/dL (7-18)
--- NOTE | 2018-03-15 08:43 | NUR ---
WOUND CARE CONSULT: PT FOLLOWED BY SURGICAL TEAM FOR WOUND CARE. DEFER TO SURGICAL TEAM FOR WOUND TREATMENT PLAN. PT ON SAMMY ISOFLEX LOW AIRLOSS BED. ALL PRESSURE ULCER PREVENTION MEASURES IN PLACE AND DISCUSSED WITH NURSING STAFF. CURRENT TONY SCORE IS 13. PT HAVING DIALYSIS AT THIS TIME.
[2018-03-15] MEDS ORDERED: Budesonide/Formoterol Fumarate (Symbicort 160-4.5 Mcg In INH SCH (09:00)
[2018-03-15 10:45] LABS: ABG PCO2 40.2 mmHg (35.0-45.0); ABG PH 7.421 (7.350-7.450); ABG PO2 150.5 mmHg (75.0-100.0); AaDO2 16.2 mmHg; COHb 0.2 % (0.5-1.5); O2Hb 96.8 % (94.0-97.0); SITE, ABG Left Radial
--- NOTE | 2018-03-15 12:44 | NUR ---
TAIL RIPPER PATIENT AND FAMILY REFUSED POST 2 PRBC CBC. RN EDUCATED PATIENT AND FAMILY REGARDING RIKS AND BENEFITS. NO ACTIVE BLEEDING.
[2018-03-15] MEDS: NYSTATIN/TRIAMCIN CREAM 15 GM TUBE TP SCH ×2 (14:30→23:54)
[2018-03-15] MEDS: ACETAMINOPHEN 325 MG TABLET PO PRN (14:41)
--- NOTE | 2018-03-15 14:58 | NUR ---
EARLY CHILDHOOD SPECIALIST TYLENOL GIVEN FOR PAIN. FAMILY AWARE.
--- NOTE | 2018-03-15 15:48 | NUR ---
STREET CAR INSPECTOR RN MONITORED PATIENT OFF LEFT HAND RESTRAINT. PATIENT NOTED TO REACH HER RIGHT FEMORAL IV ACCESS AND IV TUBING. RESTRAINTS WERE PLACED BACK ON FOR SAFETY. FAMILY MADE AWARE. MD IS AWARE.
[2018-03-15] MEDS: VANCOMYCIN 500 MG in IV D5W 100 ML IV PRN (15:54)
--- NOTE | 2018-03-15 15:57 | NUR ---
COAL WASHER TENDER PATIENT IS UNABLE TO TOLERATE REGULAR DIET NOR THIN LIQUIDS PER ST. PATIENT WAS PLACED ON PUREED DIET WITH NECTAR THICK LIQUIDS FOR SAFETY PER MD ORDER.
[2018-03-15] MEDS ORDERED: PHYTONADIONE 5 MG TABLET PO ONE (18:00)
[2018-03-15] MEDS: FOLIC ACID 1 MG TABLET PO SCH (18:17)
--- NOTE | 2018-03-15 18:18 | NUR ---
POULTRY BARN MANAGER PATIENT TOOK FOLIC ACID PILL CRUSHED WITH APPLE SAUCE. HOWEVER, PATIENT SPIT OUT SOME OF THE MEDICATION/ .
[2018-03-15] MEDS ORDERED: PHYTONADIONE INJ 10 MG/1 ML AMPUL IV ONE (18:30)
[2018-03-15] MEDS ORDERED: MORPHINE SULFATE INJ 4 MG/ML DISP.SYRIN IM PRN (19:00)
--- NOTE | 2018-03-15 19:16 | NUR ---
GRITTING MACHINE OPERATOR FAMILY NOTED TO STAY IN THE ROOM DURING NON-VISITING HOURS DURING REPORT. PATIENT'S NIECE CLAIMS THAT SHE ONLY EATS WITH HER PRESENCE. CHARGE NURSES AND PRIMARY NURSE EXPLAINED TO FAMILY. SECURITY CALLED. EXPLAINED TO FAMILY TO LEAVE THE ROOM BY SECURITY.
[2018-03-15] MEDS: ALBUTEROL FS 2.5 MG/0.5 ML VIAL.NEB NEB PRN (19:20)
[2018-03-15 19:56] LABS: HEMOGLOBIN 7.4 g/dL (11.5-14.8)
[2018-03-15 20:36] LABS: BILIRUBIN,DIRECT 0.2 mg/dL (0.0-0.2); BILIRUBIN,TOTAL 0.6 mg/dL (0.2-1.0)
[2018-03-15] MEDS: PANTOPRAZOLE 40 MG VIAL IV SCH (20:41)
[2018-03-15] MEDS: IV NS 0.9% 250 ML IV PRN (20:43)
--- NOTE | 2018-03-15 21:00 | NUR ---
TRACK MOVING MACHINE OPERATOR NOTE PT STARTED ON JHONNY PER PROTOCOL D/T BP 69/30. PT SLEEPING WITH FAMILY AT BEDSIDE. WILL MONITOR AND RECHECK BP.
--- NOTE | 2018-03-15 21:30 | NUR ---
PILOT CONTROL OPERATOR NOTE PATIENT SLEEPING AT THIS TIME WITH FAMILY AT BEDSIDE. CALLUM LEGAL COLLECTOR AT BEDSIDE AND INFORMED HER H/H 7.4 WITH NO ACTIVE BLEEDING. LEGAL COLLECTOR SAID NO TRANSFUSION AT THIS TIME DUE TO PT NOTED WITH CONGESTION S/P [address] CAMPBELL AND SHE AGREED TO NOT TRANSFUSE AT THIS TIME. INFORMED DR CAMPBELL OF FIBRINOGEN 305 WITH ORDER TO NOT GIVE CRYO AT THIS TIME. WILL CONTINUE TO MONITOR.
[2018-03-16] VITALS (55 sets, daily range): BP systolic 96–158; BP diastolic 41–84
--- NOTE | 2018-03-16 01:00 | NUR ---
DISTRICT MANAGER NOTE PT NOTED WITH EPISODES OF YELLING AND REMOVING NASAL CANNULA AND REMOVING CLOTHES. COMBATIVE DURING CARE. LEFT SOFT WRIST RESTRAINT PUT ON PT AT THIS TIME. WILL MONITOR.
[2018-03-16 04:50] LABS: ALBUMIN 2.2 g/dL (3.4-5.0); BILIRUBIN,DIRECT 0.2 mg/dL (0.0-0.2); BILIRUBIN,TOTAL 0.6 mg/dL (0.2-1.0); TOTAL PROTEIN, SERUM 5.6 g/dL (6.4-8.2)
[2018-03-16 04:56] LABS: BASOPHILS % (AUTO) 0.1 % (0.0-2.0); EOSINOPHILS % (AUTO) 2.7 % (0.0-6.0); HEMATOCRIT 23 % (33-45); HEMOGLOBIN 7.5 g/dL (11.5-14.8); LYMPHOCYTES # (AUTO) 2.1 /CMM (0.8-4.8); MEAN CORPUSCULAR HEMOGLOBIN 29 PG (26.0-33.0); MEAN CORPUSCULAR HGB CONC 32 g/dl (31.0-36.0); MEAN CORPUSCULAR VOLUME 89 fL (82-100); MONOCYTES # (AUTO) 1.1 /CMM (0.1-1.30); MONOCYTES % (AUTO) 6.9 % (2.0-12.0); NEUTROPHILS # (AUTO) 11.7 /CMM (1.8-8.9); NEUTROPHILS % (AUTO) 76.3 % (43.0-81.0); PLATELET COUNT (AUTO) 202 /CMM (150-450); RDW COEFFICIENT OF VARIATION 17.9 (11.5-15.0); WHITE BLOOD COUNT (AUTO) 15.3 K/uL (4.3-11.0)
[2018-03-16] MEDS: PIPERACILLIN /TAZOBACTAM 2.25 G in IV D5W 50 ML IV SCH ×3 (04:57→21:07)
[2018-03-16 05:06] LABS: INR 1.04 (0.87-1.13)
[2018-03-16 05:07] LABS: D-DIMER 2.36 mg/L(FEU (0.17-0.50)
[2018-03-16 05:35] LABS: BAND % (MANUAL) 3 % (0.0-5.0); LYMPHOCYTES % (MANUAL) 11 % (16-48); MONOCYTES % (MANUAL) 5 % (0-11.0); NEUTROPHILS % (MANUAL) 78 (42-76)
[2018-03-16 05:36] LABS: EOSINOPHILS % (MANUAL) 3 % (0-4)
--- NOTE | 2018-03-16 06:45 | NUR ---
CISSP NOTE PT REMAINED STABLE DURING SHIFT. NO ACUTE DISTRESS NOTED. ALL NEEDS ATTENDED TO PROMPTLY. HOB ELEVATED. REPOSITIONED Q2H. KEPT CLEAN AND DRY. WILL ENDORSE TO NEXT SHIFT FOR CONTINUITY OF CARE.
--- NOTE | 2018-03-16 07:15 | NUR ---
THREAD INSPECTOR- INITIAL NOTE RECEIVED PT A/O X1. ON 2L NC, RESPIRATIONS EVEN AND UNLABORED, NO SOB OR DISTRESS PRESENT. BEDSIDE MONITOR REVEALS SINUS RHYTHM. RIGHT GROIN TLC RUNNING NS @ TKO AND NEOSYNEPHRINE @ 20 MCG/MIN. RCA PERMACATH INTACT. PT DENIES ANY PAIN OR DISCOMFORT. WILL CONTINUE TO MONITOR.
[2018-03-16] MEDS: PANTOPRAZOLE 40 MG VIAL IV SCH ×2 (08:05→21:06)
[2018-03-16] MEDS: FOLIC ACID 1 MG TABLET PO SCH (08:05)
[2018-03-16 11:20] LABS: CALCIUM, SERUM 10.8 mg/dL (8.5-10.1); CARBON DIOXIDE 26 mmol/L (21-32); CHLORIDE 99 mmol/L (98-107); CREATININE 3.5 mg/dL (0.6-1.3); GLUCOSE 65 mg/dL (74-106); POTASSIUM 3.2 mmol/L (3.5-5.1); SODIUM SERUM 137 mmol/L (136-145); UREA NITROGEN, BLOOD 31 mg/dL (7-18)
[2018-03-16] MEDS: NYSTATIN/TRIAMCIN CREAM 15 GM TUBE TP SCH (13:34)
--- NOTE | 2018-03-16 19:30 | NUR ---
CAN CARRIER NOTE PT RECEIVED SITTING UP IN BED. AWAKE AND ALERT. ON 2L OF NC AND SATURATING WELL. BREATHING UNLABORED AND EVEN. NO C/O PAIN OR DISCOMFORT NOTED AT THIS TIME. HOB ELEVATED. CALL LIGHT WITHIN REACH. WILL CONTINUE TO MONITOR.
--- NOTE | 2018-03-16 20:28 | NUR ---
GUIDE PLANT NOTE CALLUM GRANTS ANALYST AT BEDSIDE.
[2018-03-16] MEDS: IV NS 0.9% 250 ML IV PRN (21:12)
[2018-03-16] MEDS: HYDROCODONE/APAP 5/325MG 1 EACH TABLET PO PRN (21:56)
[2018-03-17] VITALS (37 sets, daily range): BP systolic 88–132; BP diastolic 37–71
[2018-03-17] MEDS: NYSTATIN/TRIAMCIN CREAM 15 GM TUBE TP SCH ×2 (00:33→10:01)
[2018-03-17] MEDS: PIPERACILLIN /TAZOBACTAM 2.25 G in IV D5W 50 ML IV SCH ×3 (04:33→20:52)
[2018-03-17 05:19] LABS: BASOPHILS % (AUTO) 0.3 % (0.0-2.0); EOSINOPHILS % (AUTO) 3.1 % (0.0-6.0); HEMATOCRIT 22 % (33-45); LYMPHOCYTES # (AUTO) 1.6 /CMM (0.8-4.8); LYMPHOCYTES % (AUTO) 15.8 % (20.0-44.0); MEAN CORPUSCULAR HEMOGLOBIN 29 PG (26.0-33.0); MEAN CORPUSCULAR HGB CONC 32 g/dl (31.0-36.0); MEAN CORPUSCULAR VOLUME 89 fL (82-100); MONOCYTES # (AUTO) 0.7 /CMM (0.1-1.30); MONOCYTES % (AUTO) 6.6 % (2.0-12.0); NEUTROPHILS # (AUTO) 7.4 /CMM (1.8-8.9); NEUTROPHILS % (AUTO) 74.2 % (43.0-81.0); PLATELET COUNT (AUTO) 141 /CMM (150-450); RED BLOOD CELL COUNT(AUTO) 2.44 MIL/uL (4.0-5.2)
[2018-03-17 05:28] LABS: CALCIUM, SERUM 11.3 mg/dL (8.5-10.1); CARBON DIOXIDE 27 mmol/L (21-32); CHLORIDE 99 mmol/L (98-107); CREATININE 3.8 mg/dL (0.6-1.3); GLUCOSE 64 mg/dL (74-106); POTASSIUM 3.2 mmol/L (3.5-5.1); SODIUM SERUM 136 mmol/L (136-145); UREA NITROGEN, BLOOD 32 mg/dL (7-18)
[2018-03-17 06:58] LABS: INR 0.95 (0.87-1.13)
[2018-03-17 06:59] LABS: D-DIMER 2.26 mg/L(FEU (0.17-0.50)
--- NOTE | 2018-03-17 07:32 | NUR ---
RETAIL MERCHANDISER NOTE PT REMAINED STABLE DURING SHIFT. NO ACUTE DISTRESS NOTED. ALL NEEDS ATTENDED TO PROMPTLY. CRITICAL HGB 7.0 ENDORSED TO NEXT SHIFT. DIALYSIS NURSE AT BEDSIDE. REPOSITIONED Q2H. KEPT CLEAN AND DRY. WILL ENDORSE CONTINUITY OF CARE.
--- NOTE | 2018-03-17 07:45 | NUR ---
FILTER PRESS OPERATOR: pt.is awake, with open eyes, eyes contact+, oriented x1, can answer y/n, no any pain, very weak, can swallow crushed meds by report, can follow commands well, CT Head neg. before, no acute external bleeding by report, H/H 7.0, paged , O2sat. over 95%, SR, SBP is over 100, below 150, HD nurse updated with pt.status, VS, orders, labs
--- NOTE | 2018-03-17 07:55 | NUR ---
ROUTE CONTRACTOR: called back, updated, ordered one PRBC unit with HD if EGD,colonoscopy was not done, charge nurse reported: no EGD,colonoscopy orders before, was not done, order placed in, HD nurse notified
--- NOTE | 2018-03-17 08:00 | NUR ---
LEAD PAINTER: pt.has R.shoulder split/ s/p humeral Fx, no c/o by report, no any pain around now, patent, continue aspiration precaution, keep HOB 0ver 40, use thickener
--- NOTE | 2018-03-17 08:05 | NUR ---
ROLL UP HELPER: is in room, updated with pt.current condition, VS, I/O, H/H, pressor off, labs, orders, agree for one PRBC with HD, singed BT consent, Pratima/pt.DPOA also conformed BT consent by phone call
[2018-03-17] MEDS: FOLIC ACID 1 MG TABLET PO SCH (08:52)
[2018-03-17] MEDS: FLUTICASONE/VILANTEROL 1 EACH BLST.W.DEV IH SCH (08:52)
[2018-03-17] MEDS: PANTOPRAZOLE 40 MG VIAL IV SCH ×2 (08:54→20:51)
--- NOTE | 2018-03-17 09:15 | NUR ---
DIRECTOR OF MIDWIFERY/STAFF MIDWIFE: one PRBC unit was verified with CHANTAL Bowen and GARY RN is handling unit to give with HD. is in room, updated with all above
--- NOTE | 2018-03-17 09:51 | NUR ---
STORE MGR: one PRBC unit is given by HD nurse, HD done: 1L out
[2018-03-17] MEDS: VANCOMYCIN 500 MG in IV D5W 100 ML IV PRN (10:56)
--- NOTE | 2018-03-17 11:03 | NUR ---
ASSEMBLER DECK AND HULL: is in room, updated with pt.status, VS, K+3.2, HD done today with one PRBC unit BT
--- NOTE | 2018-03-17 11:30 | NUR ---
CASTING HOUSE WORKER: is in room, updated with pt.condition, VS, O2 sat., 2L n/c, coughing episodes/resp.Tx, H/H, HD
--- NOTE | 2018-03-17 13:30 | NUR ---
PANEL BEATER: is in room, updated with pt.VS, I/O, H/H, HD, no external evidence of bleeding, meds
--- NOTE | 2018-03-17 13:31 | NUR ---
GROUP CARE WORKER:
[2018-03-17] MEDS: ALBUTEROL FS 2.5 MG/0.5 ML VIAL.NEB NEB PRN (14:10)
[2018-03-17] MEDS: HYDROCODONE/APAP 5/325MG 1 EACH TABLET PO PRN ×2 (14:58→23:45)
--- NOTE | 2018-03-17 16:00 | NUR ---
ASSISTANT PROFESSOR OF FORESTRY: pt.is rest now, no c/o, SR/ST max 110, SBP over 90, o2sat. over 96%, no SOB, reactive well after resp.Tx/no coughing now, pt.JOSE Andujar is in room/detailed informed re pt.condition, VS, I/O, aspiration precaution, orders, BT, HD, skin problem, pt.confused episodes, meds, Tx, pain episodes, POC. Pt.refused for PM bedbath care now.
--- NOTE | 2018-03-17 18:08 | NUR ---
CONCRETE POURING SUPERVISOR: pt.was repositioned q2h, refused for PM/bath care and dinner now, said latter, denies to place pillow under L.leg, pt.is rest, A/Ox1, can follow simple commands, SR, SBP [id number], O2sat. over 98%, no SOB, Vanco was given after HD
--- NOTE | 2018-03-17 18:25 | NUR ---
STEAM HOIST OPERATOR: with Portuguese translation: pt.c/o stomach discomfort, pain 09/10 now, like dyspepsia now, abdomen is soft, not distended, had BM before
--- NOTE | 2018-03-17 18:35 | NUR ---
WAFER FABRICATOR: pt.refused for Maalox, pain meds, said I am ok,
--- NOTE | 2018-03-17 20:00 | NUR ---
SUPERVISOR WEAVING NOTES RECEIVED PTS IN BED AWAKE ,A/O XI WITH CONFUSSION , MALTESE SPEAKING , V/S STABLE AFEBRILE, SR WITH PAC ON THE MONITOR , NO SOB NO DISTRESS NOTED PTS ON NC AT 2LITERS SATING 100%, ON RCW PERMA CATH INTACT AND PATENT ,NO BLEEDING NOTED ,WITH R GROIN TLC INTACT AND PATENT .L AV FISTULA .BUE ELEVATED ON PILLOWS .ALL DUE MEDS GIVEN ORDERED ALL NEEDS ATTENDED TOO CALL LIGHT WITHIN REACH , TURN AND REPOSITION Q2 HRS AND PRN .SUCTION SECRETION DONE PRN , HOB ELEVATED FOR ASPIRATION PRECAUTION ,WILL CONTINUE TO MONITOR PTS.
--- NOTE | 2018-03-17 22:15 | NUR ---
CHEMICALS DISTILLER NOTES PTS HAD EPISODE OF A FLUTTER , CHECK PTS , PTS IS OK COMFORTABLE NO C/O OF PAIN , NO SOB NO DISTRESS NOTED WILL CONTINUE TO MONITOR.
[2018-03-18] VITALS (27 sets, daily range): BP systolic 80–131; BP diastolic 37–77
[2018-03-18 00:07] LABS: CARBON DIOXIDE 30 mmol/L (21-32); CHLORIDE 100 mmol/L (98-107); CREATININE 3.1 mg/dL (0.6-1.3); GLUCOSE 63 mg/dL (74-106); SODIUM SERUM 138 mmol/L (136-145); UREA NITROGEN, BLOOD 21 mg/dL (7-18)
[2018-03-18 00:10] LABS: MAGNESIUM 1.7 mg/dL (1.8-2.4); PHOSPHORUS 3.8 mg/dL (2.5-4.9)
[2018-03-18] MEDS: NYSTATIN/TRIAMCIN CREAM 15 GM TUBE TP SCH ×2 (00:47→11:52)
--- NOTE | 2018-03-18 01:23 | NUR ---
BMP , AND JASON ORDERED
--- NOTE | 2018-03-18 01:30 | NUR ---
RELAYED CRITICAL RESULT POTASSIUM OF 3.0 MAG OF 1.7 TO LIBBY TAPIA WITH ORDER MADE AND CARRIED OUT, POTASSIUM 30 MEQ IVPB AND 2 GRAMS OF MAGNESIUM.
--- NOTE | 2018-03-18 01:30 | NUR ---
PTS STILL NOTED WITH A FLUTTER , EKG DONE, -AFIB TECHNICAL TRAINING COORDINATOR WILLIE MADE AWARE .CONTINUE TO MONITOR PTS.
[2018-03-18] MEDS ORDERED: Magnesium 1GM/D5W 100ML PREMIX PIGGYBACK IV ONE (02:00)
[2018-03-18] MEDS ORDERED: POTASSIUM CHLORIDE 10 MEQ/50 ML PREMIXED IVPB FOR PERIPHERAL LINE IV ONE (02:00)
--- NOTE | 2018-03-18 02:00 | NUR ---
RECEIVED ORDER FROM LIBBY TAPIA NOT TO GIVE MAGNESIUM ORDER NOTED D/C MAGNESIUM.
[2018-03-18] MEDS: POTASSIUM CL. PREMIX PERIPHER. 50 ML IV SCH ×2 (03:06→03:53)
[2018-03-18] MEDS: PIPERACILLIN /TAZOBACTAM 2.25 G in IV D5W 50 ML IV SCH ×3 (05:05→20:55)
--- NOTE | 2018-03-18 07:30 | NUR ---
CENTER CUSTOMER SERVICE ASSOCIATE: pt.is awake, Ox1, can follow simple commands, very needy, had confused episodes, removed n/c, pillows, now rest, no c/o pain, repositioned, refused to place pillow under L.f/a, SR now, had aflutter over night, K+ was 3.0, 30 meq K+ IV given by report, new note: BT if Hb below 8.0 by report, SBP is over 90, O2 sat. over 95% on 2L n/c, no external bleeding by report, Mg 1.7, was in room, updated by night nurse, ordered 2gm Mg IV, see new orders
[2018-03-18 07:38] LABS: CALCIUM, SERUM 11.2 mg/dL (8.5-10.1); CARBON DIOXIDE 28 mmol/L (21-32); CHLORIDE 101 mmol/L (98-107); CREATININE 3.3 mg/dL (0.6-1.3); GLUCOSE 55 mg/dL (74-106); POTASSIUM 3.9 mmol/L (3.5-5.1); SODIUM SERUM 138 mmol/L (136-145); UREA NITROGEN, BLOOD 22 mg/dL (7-18)
[2018-03-18 07:42] LABS: BASOPHILS % (AUTO) 0.3 % (0.0-2.0); EOSINOPHILS % (AUTO) 2.2 % (0.0-6.0); HEMATOCRIT 28 % (33-45); LYMPHOCYTES # (AUTO) 1.6 /CMM (0.8-4.8); LYMPHOCYTES % (AUTO) 14.6 % (20.0-44.0); MEAN CORPUSCULAR HEMOGLOBIN 29 PG (26.0-33.0); MEAN CORPUSCULAR HGB CONC 32 g/dl (31.0-36.0); MEAN CORPUSCULAR VOLUME 90 fL (82-100); MONOCYTES # (AUTO) 0.9 /CMM (0.1-1.30); NEUTROPHILS # (AUTO) 8.1 /CMM (1.8-8.9); NEUTROPHILS % (AUTO) 74.9 % (43.0-81.0); PLATELET COUNT (AUTO) 122 /CMM (150-450); RDW COEFFICIENT OF VARIATION 17.5 (11.5-15.0); RED BLOOD CELL COUNT(AUTO) 3.14 MIL/uL (4.0-5.2); WHITE BLOOD COUNT (AUTO) 10.8 K/uL (4.3-11.0)
--- NOTE | 2018-03-18 07:48 | NUR ---
RING SORTER: H/H 9.0, K+ 3.9 now
[2018-03-18] MEDS: FLUTICASONE/VILANTEROL 1 EACH BLST.W.DEV IH SCH (07:52)
[2018-03-18] MEDS: Magnesium 1GM/D5W 100ML PREMIX 100 ML IV SCH ×2 (07:52→09:02)
--- NOTE | 2018-03-18 08:15 | NUR ---
PAINTER BARREL: is in room, updated with pt.current condition, VS, neurostatus, I/O, HD, H/H, labs, said: ok to transfer to Tele after HD
--- NOTE | 2018-03-18 08:35 | NUR ---
HVAC SHEET METAL INSTALLER HELPER: pt.had BM, no melena, AM/skin/wound care/bedbath done. Pt.is uncooperative now, trying to remove n/c, pulse oximetry sensor, refused to get inhal.meds, got detailed explanation re POC, Dx, Tx
[2018-03-18] MEDS: FOLIC ACID 1 MG TABLET PO SCH (09:05)
[2018-03-18] MEDS: PANTOPRAZOLE 40 MG VIAL IV SCH ×2 (09:05→20:55)
[2018-03-18 10:03] LABS: EOSINOPHILS % (MANUAL) 1 % (0-4); LYMPHOCYTES % (MANUAL) 13 % (16-48); MONOCYTES % (MANUAL) 3 % (0-11.0); NEUTROPHILS % (MANUAL) 83 (42-76)
--- NOTE | 2018-03-18 10:03 | NUR ---
LAMINATED PLASTICS ASSEMBLER AND GLUER: sent message for KATIE Ott to verify HD time today
[2018-03-18 10:17] LABS: D-DIMER 2.54 mg/L(FEU (0.17-0.50); INR 0.98 (0.87-1.13)
--- NOTE | 2018-03-18 10:30 | NUR ---
SERVICING MANAGER: HDRN updated with pt.status, VS, labs, orders, started HD. is in room, notified re pt.history, VS, O2sat., resp.Tx, labs, orders, I/O, H/H. pt.is uncooperative now, grabbed and pulled stethoscope, encouraged again to follow POC, HD RN is in room
[2018-03-18] MEDS ORDERED: EPOETIN ALFA (10,000 UNIT) 10,000 UNIT/ML VIAL IV ONE ×2 (11:00→15:00)
--- NOTE | 2018-03-18 12:00 | NUR ---
PRINTING SHOP SUPERVISOR: is in room, updated with all above, spoke with HD RN, pt.sister in low/notified re POC, current results, orders, pt.confused episodes. Protective measures, aspiration precaution were applied.
--- NOTE | 2018-03-18 15:15 | NUR ---
PET WALKER: is in room, updated with pt.current condition, VS, H/H, BMx2, no melena, HD, I/O, orders, labs, wants to do paracentesis, see new orders. BS is 68 now
--- NOTE | 2018-03-18 15:30 | NUR ---
ICE CREAM MAKER: pt.is transferred to Tele after full report for Afsatu,RN included paracentesis order and JOSE Andujar contact information
--- NOTE | 2018-03-18 15:49 | NUR ---
INSURANCE LOSS ASSESSORRESIDENTIAL CARPENTER NOTES: RECEIVED PT FROM ICU NURSE IN STABLE CONDITION. PT IS A/O X2 AND CONFUSED. NO SOB OR ACUTE SIGNS OF DISTRESS NOTED. BREATHING IS EVEN AND UNLABORED. PT ON 2 L VIA NC AND SATING WELL. SHE DENIES PAIN AT THIS TIME. RIGHT UPPER CHEST WALL PERMCATH NOTED ALONG WITH RIGHT GROIN TRIPLE LUMEN CATHETER. CATHETER NOTED TO BE PATENT AND INTACT. AV SHUNT NOTED TO LEFT ARM FOR HD ACCESS. PT CURRENTLY SINUS TACH ON THE TELE MONITOR WITH A HR OF 105. PT ORIENTED TO ROOM AND USE OF CALL LIGHT. BED IN LOW LOCKED POSITION, SIDE RAILS UP X3, CALL LIGHT WITHIN REACH, BED ALARM ON. WILL CONTINUE TO MONITOR
[2018-03-18 16:24] LABS: ALANINE AMINOTRANSFERASE 67 U/L (12-78); ALBUMIN 1.9 g/dL (3.4-5.0); ALKALINE PHOSPHATASE 153 U/L (46-116); ASPARTATE AMINOTRANSFERASE 78 U/L (15-37); BILIRUBIN,TOTAL 0.7 mg/dL (0.2-1.0); CALCIUM, SERUM 10.2 mg/dL (8.5-10.1); CARBON DIOXIDE 28 mmol/L (21-32); CHLORIDE 100 mmol/L (98-107); CREATININE 2.5 mg/dL (0.6-1.3); GLUCOSE 69 mg/dL (74-106); POTASSIUM 3.4 mmol/L (3.5-5.1); SODIUM SERUM 137 mmol/L (136-145); TOTAL PROTEIN, SERUM 5.4 g/dL (6.4-8.2); UREA NITROGEN, BLOOD 15 mg/dL (7-18)
--- NOTE | 2018-03-18 16:40 | NUR ---
SEMICONDUCTOR DEVELOPMENT TECHNICIAN NOTES: PARACENTESIS TELEPHONE CONSENT OBTAINED FOR US GUIDED PARACENTESIS FROM PT'S JOSE AND BETZAIDA ESCOBAR. RN MURTAZA WITNESS TO CONSENT. DR. SU MADE AWARE AND STATES THAT THE PROCEDURE WILL HAPPEN TOMORROW. FURTHER ORDERS OBTAINED TO KEEP THE PT NPO POST MIDNIGHT. WILL CARRY OUT ORDERS
--- NOTE | 2018-03-18 17:35 | NUR ---
MULTIMEDIA COORDINATOR NOTES: ASSESSMENT PT PROVIDED WITH BED BATH AND FULL HEAD TO TOE ASSESSMENT WAS COMPLETED. LEFT BREAST SIDE AND BREAST BRUISE NOTED ALONG WITH A RIGHT ARMPIT RASH AND GROIN REDNESS. PHOTOS TAKEN AND PLACED IN PT'S CHART. RIGHT ARM BRACE NOTED PT SUSTAINED A FRACTURE FROM HER FACILITY PRIOR TO ADMISSION SATED BY PT'S NIECE. PITTING (+2) EDEMA NOTED TO RIGHT HAND. CAP REFILL WNL TO EXTREMITIES. PULSES PALPABLE. PT WAS REPOSITIONED AND TURNED. CENTRAL LINE DRESSING CARE RENDERED.
--- NOTE | 2018-03-18 19:15 | NUR ---
JUNIOR WEB DESIGNER OPENING NOTES PT IN BED AWAKE A/O X1-2 SERBIAN SPEAKING.VS ARE STABLE.PT WILL BE NPO AFTER MIDNIGHT FOR PROCEDURE TOMORROW. CONSENT SIGHED AND PLACED IN THE CHART BY PREVIOUS SHIFT. PT HAS R SHOULDER FX.L AF SHUNT. SAFETY AND FALL PRECAUTIONS REMAIN IN PLACE. CALL LIGHT WITHIN REACH.WILL CONTINUE TO MONITOR.
--- NOTE | 2018-03-18 19:27 | NUR ---
ACCOUNT SERVICES SPECIALIST CLOSING NOTES PT REMAINS STABLE SINCE TRANSFER. ALL NEEDS ANTICIPATED FOR AND MET. SAFETY AND FALL PRECAUTIONS REMAIN IN PLACE. VITALS STABLE AT THIS TIME. WILL ENDORSE TO NIGHTSHIFT NURSE FOR MACK
[2018-03-19 00:06] VITALS: BP 113/48
[2018-03-19] MEDS: HYDROCODONE/APAP 5/325MG 1 EACH TABLET PO PRN (00:29)
[2018-03-19] MEDS: NYSTATIN/TRIAMCIN CREAM 15 GM TUBE TP SCH ×2 (00:52→12:02)
[2018-03-19 04:00] VITALS: BP 123/55
[2018-03-19] MEDS: PIPERACILLIN /TAZOBACTAM 2.25 G in IV D5W 50 ML IV SCH ×3 (05:18→21:10)
--- NOTE | 2018-03-19 07:20 | NUR ---
CONTINUOUS ABSORPTION PROCESS OPERATOR INITIAL NOTES Report received at bedside. Patient received in bed, intermittently sleeping, easily aroused. On oxygen therapy @2LPM via nasal cannula with no SOB/labored breathing noted. Not in any type of distress. Tele: Afib; HR 110s. HOB elevated. Safety measures in place. Will continue to monitor and assess patient.
--- NOTE | 2018-03-19 07:30 | NUR ---
USER EXPERIENCE TEAM LEAD CLOSING NOTES PT IN BED AWAKE A/O X1-2.PT NPO STATUS AFTER MIDNIGHT FOR PROCEDURE TODAY.NO ACUTE DISTRESS NOTED.DENIES PAIN AT THIA TIME. PT HAS R SHOULDER FX, L AF SHUNT. SAFETY AND FALL PRECAUTIONS REMAIN IN PLACE. CALL LIGHT WITHIN REACH.WILL ENDORSE TO DAY SHIFT FOR MACK.
[2018-03-19 08:00] VITALS: BP 119/49
[2018-03-19] MEDS: ACETAMINOPHEN 325 MG TABLET PO PRN ×2 (08:27→18:23)
[2018-03-19] MEDS: FOLIC ACID 1 MG TABLET PO SCH (08:27)
[2018-03-19] MEDS: PANTOPRAZOLE 40 MG VIAL IV SCH (08:27)
[2018-03-19] MEDS: FLUTICASONE/VILANTEROL 1 EACH BLST.W.DEV IH SCH (08:28)
[2018-03-19] MEDS: POTASSIUM CHLORIDE 20 MEQ TAB.PRT.SR PO SCH ×2 (10:03→10:07)
[2018-03-19 10:40] LABS: BASOPHILS % (AUTO) 0.3 % (0.0-2.0); EOSINOPHILS % (AUTO) 1.1 % (0.0-6.0); HEMATOCRIT 28 % (33-45); HEMOGLOBIN 9.2 g/dL (11.5-14.8); LYMPHOCYTES # (AUTO) 1.8 /CMM (0.8-4.8); MEAN CORPUSCULAR HEMOGLOBIN 29 PG (26.0-33.0); MEAN CORPUSCULAR HGB CONC 33 g/dl (31.0-36.0); MEAN CORPUSCULAR VOLUME 88 fL (82-100); MONOCYTES % (AUTO) 10.4 % (2.0-12.0); NEUTROPHILS # (AUTO) 6.8 /CMM (1.8-8.9); NEUTROPHILS % (AUTO) 69.2 % (43.0-81.0); PLATELET COUNT (AUTO) 127 /CMM (150-450); RDW COEFFICIENT OF VARIATION 16.8 (11.5-15.0); RED BLOOD CELL COUNT(AUTO) 3.17 MIL/uL (4.0-5.2); WHITE BLOOD COUNT (AUTO) 9.7 K/uL (4.3-11.0)
[2018-03-19 10:49] LABS: CALCIUM, SERUM 11.6 mg/dL (8.5-10.1); CARBON DIOXIDE 27 mmol/L (21-32); CHLORIDE 101 mmol/L (98-107); CREATININE 3.1 mg/dL (0.6-1.3); GLUCOSE 51 mg/dL (74-106); POTASSIUM 3.5 mmol/L (3.5-5.1); SODIUM SERUM 138 mmol/L (136-145); UREA NITROGEN, BLOOD 17 mg/dL (7-18)
--- NOTE | 2018-03-19 13:00 | NUR ---
MS RN - DIALYSIS Dialysis in progress.
[2018-03-19] MEDS ORDERED: GUAIFENESIN/D-METHORPHAN HB 5 ML UDC PO PRN (15:30)
[2018-03-19 16:00] VITALS: BP 92/38
[2018-03-19] MEDS ORDERED: IV NS 0.9% 1,000 ML BAG IV PRN (17:30)
--- NOTE | 2018-03-19 17:40 | NUR ---
MS RN - NEW ORDER NOTES New order of IV NS @70ml/hr for fluid replacement per Dr. Campo. MD made aware of 1. Hold on EGD per GI MD 2. Paracentesis tomorrow 03/20/[address] swallow eval per Dr. Renteria 4. HD output of 1200cc
[2018-03-19] MEDS ORDERED: IV NS 0.9% 1,000 ML IV PRN (18:00)
--- NOTE | 2018-03-19 19:20 | NUR ---
rn ms notes received patient in bed awake and alert and oriented x 1 noted with episodes of yelling names. respirations even and unlabored with equal rise and fall of chest,currently on 02 2 liters via nc spo2 at 99%. denies any pain or discomfort at this time, no facial grimacing or moans present, right subclavian permacath intact and right femoral 3 lumen catheter intact. ivf running as ordered. noted with right arm cast/splint intact.patient is currently npo at this time for procedure on 03/20/18, repositioned and perineal care provided x 1 bm noted at this time, oriented to staff and call light, safety precautions in place,low bed and locked bed alarm in place, all needs attended at this time will continue to monitor. remains comfortable at this time.
--- NOTE | 2018-03-19 19:20 | NUR ---
MS RN CLOSING NOTES Report given at bedside. Patient remained in bed, intermittently sleeping, easily aroused. Alert&oriented x1, verbally responsive. Hemodialysis output: 1200cc. Afebrile. On continuous oxygen therapy @2LPM via nasal cannula with no SOB/breathing noted. HOB elevated. Turned and repositioned every two hours with bony prominences offloaded. Continue on antibiotic therapy for PNA. Wound treatment rendered. Not in any type of distress. All needs anticipated and met. Bed in locked and lowest position with call light within reach. Endorsed to oncoming shift nurse
[2018-03-19 20:00] VITALS: BP 104/42
--- NOTE | 2018-03-19 20:00 | NUR ---
rn ms notes noted patient blood pressure 104/42 heart rate 100, resp 18, 02 sat 99% on 2 liters. noted patient trend with low blood pressure, ivf running at 70ml/hr. no s/s of hypotension present. no nausea, no fatigue, no lightheadedness, no change in loc,will continue to monitor, no distress present, remains comfortable and stable at this time.
--- NOTE | 2018-03-19 20:56 | NUR ---
rn ms notes iv atb bag for 2100 defected. will use next dose bag. placed defected on in beg for phramacy.
[2018-03-20] MEDS: NYSTATIN/TRIAMCIN CREAM 15 GM TUBE TP SCH ×2 (00:28→14:08)
--- NOTE | 2018-03-20 05:07 | NUR ---
rn ms notes attempted to float heels with pillows for skin management and prevention patient refused, kicking of [id number] rubbing feet against sheets. skin assessed skin on heels are intact, no redness present at this time will continue to monitor
[2018-03-20] MEDS: PIPERACILLIN /TAZOBACTAM 2.25 G in IV D5W 50 ML IV SCH ×3 (05:13→20:18)
--- NOTE | 2018-03-20 07:20 | NUR ---
rn ms closing notes patient in bed awake alert and oriented x 1, respirations even and unlabored with equal rise and fall of chest, denies any pain of discomfort at this time, right femoral triple lumen cath intact and patent, ivf flowing as ordered, right subclavian cath intact.patient remained npo for US GUIDED PARACENTESIS AND POSSIBLE EGD, patient repositioned and offloaded affected sites, wound care done as ordered. no changes of throughout shift noted, noted increase in blood pressure 125/54. pharmacy called to notify of defected iv zosyn and 1300 dose to be refilled.safety precautions in place call light kept within reach.all needs attended will continue to endorse to next shift.
[2018-03-20 08:00] VITALS: BP 104/60
--- NOTE | 2018-03-20 08:00 | NUR ---
m/s wire twister: md visit seen and examined by dr. muro with verbal order to d'c iv fluids, pt is on hd as stated. order carried out and acknowledged.
[2018-03-20] MEDS: FOLIC ACID 1 MG TABLET PO SCH (08:38)
[2018-03-20] MEDS: FLUTICASONE/VILANTEROL 1 EACH BLST.W.DEV IH SCH (08:39)
[2018-03-20] MEDS: PANTOPRAZOLE 40 MG VIAL IV SCH (08:48)
--- NOTE | 2018-03-20 10:15 | NUR ---
m/s risk specialist: notes dr. lawrence at bedside and performed us guided paracentesis to right lower quadrant and obtained 1700 of reddish gastric contents, david. well.
--- NOTE | 2018-03-20 12:40 | NUR ---
m/s social work manager: gi f/u seen by dr. hernandez at this time and informed me that no need for egd at this time since family says pt already had one as stated.
[2018-03-20] MEDS ORDERED: PAMIDRONATE 30 MG in IV NS 0.9% 500 ML IV ONE (14:00)
[2018-03-20] MEDS: HYDROCORTISONE CR 30 GM TUBE RC SCH ×2 (14:07→17:28)
[2018-03-20] MEDS: VANCOMYCIN 500 MG in IV D5W 100 ML IV PRN (14:49)
--- NOTE | 2018-03-20 15:00 | NUR ---
m/s emissions inspector: notes daughter visiting at this time and updated plan of care.
[2018-03-20 16:00] VITALS: BP 112/60
--- NOTE | 2018-03-20 17:30 | NUR ---
m/s principal biostatistician: notes daughter remains here and assisted pt with her meal with hob elevated at 90 degree. will continue to monitor.
--- NOTE | 2018-03-20 19:20 | NUR ---
m/s clinical systems educator: notes bedside report given to mark (rn) for continuity of care. no distress. needs attended.
--- NOTE | 2018-03-20 19:25 | NUR ---
MS CORNEJO INITIAL NOTES Received patient A/O X 1 on Tello's position on bed. With patent PICC line R femoral, with AV shunt R subclavian HD cath. No s/sx of discomfort noted at this time. On O2 inhalation via NC tolerated well @ 2LPM, no SOB/respiratory distress noted. With sling and splint on R arm in place. Per AM shift, patient is noted aneuric. Will monitor accordingly.
[2018-03-20 20:00] VITALS: BP 117/56
[2018-03-20 20:11] LABS: BASOPHILS # (AUTO) 0.1 /CMM (0.0-0.2); BASOPHILS % (AUTO) 0.5 % (0.0-2.0); EOSINOPHILS % (AUTO) 1.1 % (0.0-6.0); HEMATOCRIT 30 % (33-45); HEMOGLOBIN 9.4 g/dL (11.5-14.8); LYMPHOCYTES # (AUTO) 1.9 /CMM (0.8-4.8); MEAN CORPUSCULAR HEMOGLOBIN 29 PG (26.0-33.0); MEAN CORPUSCULAR HGB CONC 32 g/dl (31.0-36.0); MEAN CORPUSCULAR VOLUME 90 fL (82-100); MONOCYTES # (AUTO) 1.1 /CMM (0.1-1.30); MONOCYTES % (AUTO) 10.2 % (2.0-12.0); NEUTROPHILS % (AUTO) 71.2 % (43.0-81.0); PLATELET COUNT (AUTO) 131 /CMM (150-450); RDW COEFFICIENT OF VARIATION 17.8 (11.5-15.0); RED BLOOD CELL COUNT(AUTO) 3.28 MIL/uL (4.0-5.2); WHITE BLOOD COUNT (AUTO) 11.2 K/uL (4.3-11.0)
[2018-03-20 20:33] LABS: CALCIUM, SERUM 10.8 mg/dL (8.5-10.1); CARBON DIOXIDE 21 mmol/L (21-32); CHLORIDE 100 mmol/L (98-107); CREATININE 2.8 mg/dL (0.6-1.3); GLUCOSE 67 mg/dL (74-106); POTASSIUM 3.7 mmol/L (3.5-5.1); SODIUM SERUM 135 mmol/L (136-145); UREA NITROGEN, BLOOD 14 mg/dL (7-18)
[2018-03-21] MEDS: HYDROCODONE/APAP 5/325MG 1 EACH TABLET PO PRN (00:02)
[2018-03-21] MEDS: NYSTATIN/TRIAMCIN CREAM 15 GM TUBE TP SCH ×2 (00:36→13:12)
[2018-03-21] MEDS: PIPERACILLIN /TAZOBACTAM 2.25 G in IV D5W 50 ML IV SCH ×2 (04:07→13:00)
--- NOTE | 2018-03-21 06:40 | NUR ---
MS RN CLOSING NOTES Patient asleep on Fowlers position with patent PICC line R femoral, SL. On O2 inhalation via NC saturating well @ 2LPM. NO SOB/respiratory distress noted. With AV shunt R subclavian, bruit and thrills noted. On puree with honey thick fluid, renal standard diet. Daily weigh done 131lbs, bed scale. Remained anuric the whole shift, had BM X1. All due meds given, no ASE noted. For dialysis today as ordered. Kept clean, dry and comfortable. All needs attended. Afebrile the whole shift, no new unusualities noted. No s/s of discomfort at this time. Endorsed to the next shift.
--- NOTE | 2018-03-21 07:25 | NUR ---
MS RN OPENING NOTES RECEIVED PATIENT IN STABLE CONDITION. IN NO APPARENT DISTRESS. BEDSIDE RAILS ARE UPX2. BED IS LOCKED AND LOWERED. CALL LIGHT IS WITHIN REACH. IV LINE IS INTACT AND PATENT. WILL CONTINUE TO MONITOR PATIENT.
[2018-03-21] MEDS: METOPROLOL TARTRATE 25 MG TABLET PO SCH ×2 (09:00→14:27)
[2018-03-21 09:08] VITALS: BP 122/61
[2018-03-21] MEDS: PANTOPRAZOLE 40 MG VIAL IV SCH (09:10)
[2018-03-21] MEDS: FOLIC ACID 1 MG TABLET PO SCH (09:10)
[2018-03-21] MEDS: HYDROCORTISONE CR 30 GM TUBE RC SCH ×2 (09:11→13:12)
[2018-03-21] MEDS: FLUTICASONE/VILANTEROL 1 EACH BLST.W.DEV IH SCH (09:11)
--- NOTE | 2018-03-21 09:31 | NUR ---
NON ADMINISTERED METOPROLOL. PATIENT RECEIVING DIALYSIS. PATIENTS BLOOD PRESSURE AND HEART RATE IS STABLE. BLOOD PRESSURE IS 131/59 AND HEART RATE IS 70. WILL CONTINUE TO MONITOR.
[2018-03-21 09:52] VITALS: BP 124/61
--- NOTE | 2018-03-21 13:12 | NUR ---
PATIENT REMOVED TRIPLE LUMEN CATHETER IN THE FEMORAL AREA. NON ADMINISTERED ZOSYN ANTIBIOTIC. PATIENT IS BEING DISCHARGED AT 1400 TO [facility].
--- NOTE | 2018-03-21 13:45 | NUR ---
PATIENT REFUSED TO HAVE PICTURES TAKEN OF GROIN AND RIGHT ARMPIT. REST OF BODY CHECK WAS PERFORMED AND PICTURES WERE TAKEN AND PLACED IN THE CHART INCLUDING BUTTOCKS WOUND AND SKIN BRUISES
[2018-03-21 14:27] VITALS: BP 112/54
--- NOTE | 2018-03-21 14:34 | NUR ---
PATIENTS HEART RATE IS 110 BEFORE DISCHARGE. ADMINISTERED METOPROLOL 25MG. THIS DOSE WAS NON ADMINISTERED AT 0900 DUE TO PATIENT UNDERGOING DIALYSIS.
--- NOTE | 2018-03-21 14:48 | NUR ---
DISCHARGED PATIENT IN STABLE CONDITION. IN NO APPARENT DISTRESS. EXITCARE WAS PROVIDED TO THE PATIENT. TRIPLE LUMEN CATHETER WAS REMOVED. ID BAND WAS REMOVED. ALL NEEDS WERE MET. PATIENT ESCORTED OUT OF THE HOSPITAL VIA AMBULANCE. PATIENT IS GOING TO [facility]. BELONGINGS SENT WITH PATIENT. FAMILY NOTIFIED.
== END 2018-03-21 15:22 | DRG 871 ==
LOC: ER 15:23 → ICU 19:46 → TELE 03-18 16:14 → MED 03-19 08:53
PROVIDERS: ADMIT Internal Medicine; ATTEND Internal Medicine
PROC: 30233N1 Transfusion of Nonautologous Red Blood Cells into Peripheral Vein, Percutaneous Approach (ICD-10-PCS; principal; 2018-03-15)
PROC: 5A1D70Z Performance of Urinary Filtration, Intermittent, Less than 6 Hours Per Day (ICD-10-PCS; 2018-03-15)
PROC: 5A1D70Z Performance of Urinary Filtration, Intermittent, Less than 6 Hours Per Day (ICD-10-PCS; 2018-03-17)
PROC: 5A1D70Z Performance of Urinary Filtration, Intermittent, Less than 6 Hours Per Day (ICD-10-PCS; 2018-03-18)
PROC: 5A1D70Z Performance of Urinary Filtration, Intermittent, Less than 6 Hours Per Day (ICD-10-PCS; 2018-03-19)
PROC: 5A1D70Z Performance of Urinary Filtration, Intermittent, Less than 6 Hours Per Day (ICD-10-PCS; 2018-03-21)
DX: A41.9 Sepsis, unspecified organism (principal); E43 Unspecified severe protein-calorie malnutrition; K72.00 Acute and subacute hepatic failure without coma; R65.21 Severe sepsis with septic shock; J15.9 Unspecified bacterial pneumonia; J15.6 Pneumonia due to other Gram-negative bacteria; I50.33 Acute on chronic diastolic (congestive) heart failure; N18.6 End stage renal disease; G92 Toxic encephalopathy; R57.8 Other shock; J44.0 Chronic obstructive pulmonary disease with (acute) lower respiratory infection; I13.2 Hypertensive heart and chronic kidney disease with heart failure and with stage 5 chronic kidney disease, or end stage renal disease; C90.00 Multiple myeloma not having achieved remission; M84.48XA Pathological fracture, other site, initial encounter for fracture; D62 Acute posthemorrhagic anemia; K92.2 Gastrointestinal hemorrhage, unspecified; D68.9 Coagulation defect, unspecified; R18.8 Other ascites; I48.0 Paroxysmal atrial fibrillation; I25.10 Atherosclerotic heart disease of native coronary artery without angina pectoris; K64.9 Unspecified hemorrhoids; Z99.2 Dependence on renal dialysis; R74.0 Nonspecific elevation of levels of transaminase and lactic acid dehydrogenase [LDH]; E88.09 Other disorders of plasma-protein metabolism, not elsewhere classified; M62.50 Muscle wasting and atrophy, not elsewhere classified, unspecified site; Z68.25 Body mass index [BMI] 25.0-25.9, adult; E11.22 Type 2 diabetes mellitus with diabetic chronic kidney disease; K76.0 Fatty (change of) liver, not elsewhere classified; E83.52 Hypercalcemia; D64.81 Anemia due to antineoplastic chemotherapy; D63.0 Anemia in neoplastic disease; L30.4 Erythema intertrigo; R13.10 Dysphagia, unspecified; E83.9 Disorder of mineral metabolism, unspecified; Z79.899 Other long term (current) drug therapy
CPT/HCPCS: 36415; 36600; 70450-TC; 71045-TC; 76705-TC; 76942-TC; 80048-TC; 80053-TC; 80074; 80076-TC; 80202-TC; 82247-TC; 82248-TC; 82272-TC; 82728-TC; 82746; 82962-TC; 83540-TC; 83605-TC; 83735-TC; 84100-TC; 84484-TC; 85025-TC; 85027-TC; 85045-TC; 85385-TC; 85396; 85730-TC; 86850-TC; 86921-TC; 87040-TC; 87081-TC; 90935-TC; 92526; 92611-TC; A4216; A4606; A6403; C1751; C9113; J0885; J1644; J2270; J2370; J2405; J2430; J2543; J3370; J3430; J3475; J3480; J7030; J7040; J7050; J7060; P9016-BL; P9047; Z7610